=== PATIENT | male | born 1985 | race Caucasian/White ===

== ENCOUNTER 2023-12-12 15:31 | Inpatient (IN) | payer OTHER ==
[2023-12-12] MEDS: SODIUM CHLORIDE 0.9% 500 ML 500 ML IV STA (16:21)
[2023-12-12] MEDS: HYDROmorphone 1 MG/ML 1 ML SYRINGE IVP STA (16:21)
[2023-12-12] MEDS: SODIUM CHLORIDE 0.9% 1,000 ML IV STA ×2 (16:21→16:29)
[2023-12-12] MEDS: PROCHLORPERAZINE INJ 10 MG/2 ML VIAL IVP STA (16:22)
[2023-12-12] MEDS: diphenhydrAMINE 50 MG/ML 1 ML VIAL IVP STA (16:22)
[2023-12-12 16:45] LABS: Basophils # (A) 0.1 k/uL (0-0.2); Basophils % (A) 1 %; Eosinophils # (A) 0.1 k/uL (0-0.7); Eosinophils % (A) 0 %; HGB 18.2 gm/dL (13.0-17.5); Lymphocytes # (A) 1.7 k/uL (1.0-4.8); Lymphocytes % (A) 11 %; MCH 31.3 pg (25.0-35.0); MCV 89.6 fL (80.0-100.0); Mean Platelet Volume 7.6; Monocytes # (A) 0.8 k/uL (0-1.0); Monocytes % (A) 5 %; Neutrophils # (A) 13.7 k/uL (1.3-7.7); Neutrophils % (A) 83 %; Platelet Count 307 k/uL (150-450); RDW 11.6 % (11.5-15.5); WBC 16.4 k/uL (3.8-10.6)
[2023-12-12 17:11] LABS: Partial Thromboplastin Time 23.8 sec (22.0-30.0); Prothrombin Time 11.1 sec (10.0-12.5)
--- NOTE | 2023-12-12 17:13 | ED ---
Abdominal Pain HPI - General Chief Complaint: Abdominal Pain Stated Complaint: Abd pain Time Seen by Provider: 12/12/23 15:40 Source: patient, RN notes reviewed, old records reviewed Mode of arrival: ambulatory Limitations: no limitations - History of Present Illness Initial Comments: This is a 38-year-old male to the ER for evaluation today. Patient patient who presents today e for evaluation regards to abdominal pain right upper quadrant abdominal pain epigastric abdominal pain with severe nausea no vomiting no travel history no significant sick contacts. Patient has history of similar pain with multiple recent ER visits for his pain. Patient's vomiting is profuse and persistent and present here in the ER MD Complaint: abdominal pain -: minutes(s) Location: diffuse, epigastric Radiation: epigastric Migration to: suprapubic Severity: moderate Severity scale (1-10): 6 Quality: stabbing, aching Consistency: constant Improves With: nothing Worsens With: nothing Associated Symptoms: nausea, vomiting Treatments Prior to Arrival: NSAIDs - Related Data Home Medications Medication Instructions Recorded Confirmed Omeprazole 40 mg PO DAILY 12/13/23 12/13/23 Ondansetron Odt [Zofran Odt] 4 mg PO TID PRN 12/13/23 12/13/23 Sucralfate [Carafate] 1 gm PO ACHS 12/13/23 12/13/23 Allergies Allergy/AdvReac Type Severity Reaction Status Date / Time No Known Allergies Allergy Verified 12/13/23 08:58 Review of Systems ROS Statement: Those systems with pertinent positive or pertinent negative responses have been documented in the HPI. ROS Other: All systems not noted in ROS Statement are negative. Past Medical History History of Any Multi-Drug Resistant Organisms: None Reported Past Psychological History: No Psychological Hx Reported Smoking Status: Current every day smoker Past Alcohol Use History: None Reported Past Drug Use History: None Reported General Exam Limitations: no limitations General appearance: alert, in no apparent distress Head exam: Present: atraumatic, normocephalic, normal inspection Eye exam: Present: normal appearance, PERRL, EOMI. Absent: scleral icterus, conjunctival injection, periorbital swelling ENT exam: Present: normal exam, mucous membranes moist Neck exam: Present: normal inspection. Absent: tenderness, meningismus, lymphadenopathy Respiratory exam: Present: normal lung sounds bilaterally. Absent: respiratory distress, wheezes, rales, rhonchi, stridor Cardiovascular Exam: Present: regular rate, normal rhythm, normal heart sounds. Absent: systolic murmur, diastolic murmur, rubs, gallop, clicks GI/Abdominal exam: Present: soft, normal bowel sounds. Absent: distended, tenderness, guarding, rebound, rigid Extremities exam: Present: normal inspection, full ROM, normal capillary refill. Absent: tenderness, pedal edema, joint swelling, calf tenderness Back exam: Present: normal inspection Neurological exam: Present: alert, oriented X3, CN II-XII intact Psychiatric exam: Present: normal affect, normal mood Skin exam: Present: warm, dry, intact, normal color. Absent: rash Course Vital Signs 12/12/23 12/12/23 12/12/23 15:35 20:22 21:29 Temperature 98.0 F Pulse Rate 83 83 62 Respiratory 20 16 18 Rate Blood Pressure 131/95 126/79 106/76 Blood Pressure [Left Arm] O2 Sat by Pulse 99 97 95 Oximetry 12/13/23 12/13/23 12/13/23 00:25 04:27 08:00 Temperature 97.9 F 98.0 F 98.2 F Pulse Rate Respiratory 18 16 18 Rate Blood Pressure Blood Pressure 126/94 117/89 120/84 [Left Arm] O2 Sat by Pulse 96 96 99 Oximetry 12/13/23 12/13/23 08:40 13:30 Temperature 98.3 F Pulse Rate Respiratory 18 18 Rate Blood Pressure Blood Pressure 122/83 [Left Arm] O2 Sat by Pulse 98 Oximetry - Reevaluation(s) Reevaluation #1: 12/12/23 17:28 Medical records reviewed Reevaluation #2: 12/12/23 17:29 Patient symptoms improved Reevaluation #3: 12/12/23 20:40 Spoke with patient informed of results and questions answered Reevaluation #4: Was pt. sent in by a medical professional or institution (, PA, COMMERCIAL CENSUS TAKER, urgent care, hospital, or skilled nursing...) When possible be specific @ -no Did you speak to anyone other than the patient for history (EMS, parent, family, police, friend...)? What history was obtained from this source @ -no Did you review nursing and triage notes (agree or disagree)? Why? @ -agree Are old charts reviewed (outside hosp., previous admission, EMS record, old EKG, old radiological studies, urgent care reports/EKG's, skilled nursing records)? Report findings @ -yes Differential Diagnosis (chest pain, altered mental status, abdominal pain women, abdominal pain men, vaginal bleeding, weakness, fever, dyspnea, syncope, headache, dizziness, GI bleed, back pain, seizure, CVA, palpatations, mental health, musculoskeletal)? @ -prior EKG interpreted by me (3pts min.). @ -yes X-rays interpreted by me (1pt min.). @ -no CT interpreted by me (1pt min.). @ -yes negative for acute disease U/S interpreted by me (1pt. min.). @ -no What testing was considered but not performed or refused? (CT, X-rays, U/S, labs)? Why? @ -none What meds were considered but not given or refused? Why? @ -none Did you discuss the management of the patient with other professionals (professionals i.e. , PA, COMMERCIAL CENSUS TAKER, lab, RT, psych nurse, psychologist social, salesperson yard goods, teacher, public safety officer, shoe caser)? Give summary @ -no Was smoking cessation discussed for >3mins.? @ -no Was critical care preformed (if so, how long)? @ -no Were there social determinants of health that impacted care today? How? (Homelessness, low income, unemployed, alcoholism, drug addiction, transportation, low edu. Level, literacy, decrease access to med. care, snf, rehab)? @ -none Was there de-escalation of care discussed even if they declined (Discuss DNR or withdrawal of care, Hospice)? DNR status @ -no What co-morbidities impacted this encounter? (DM, HTN, Smoking, COPD, CAD, Cancer, CVA, ARF, Chemo, Hep., AIDS, mental health diagnosis, sleep apnea, morbid obesity)? @ -none Was patient admitted / discharged? Hospital course, mention meds given and route, prescriptions, significant lab abnormalities, going to OR and other pertinent info. @ - 38 male to ER for evaluation abdominal pain epigastric abdominal pain with severe nausea vomiting and severe pain. Patient has significant colitis with intractable nausea vomiting will admit for symptom control\ Admitted Undiagnosed new problem with uncertain prognosis? @ -no Drug Therapy requiring intensive monitoring for toxicity (Heparin, Nitro, Insulin, Cardizem)? @ -no Were any procedures done? @ -no Diagnosis/symptom? @ -Abdominal pain intractable colitis Acute, or Chronic, or Acute on Chronic? @ -Acute Uncomplicated (without systemic symptoms) or Complicated (systemic symptoms)? @ -Complicated Side effects of treatment? @ -no Exacerbation, Progression, or Severe Exacerbation? @ -exacerbation Poses a threat to life or bodily function? How? (Chest pain, [place], [place], pneumonia, PE, COPD, DKA, ARF, appy, cholecystitis, CVA, Diverticulitis, Homicidal, Suicidal, threat to staff... and all critical care pts) @ -yes significant abdominal pain Reevaluation #5: Differential Abdominal Pain Men: Appendicitis, cholecystitis, diverticulosis, ischemic bowel, pancreatitis, hepatitis, UTI, gastroenteritis, AAA, incarcerated hernia, bowel obstruction, constipation, inflammatory bowel, hepatitis, peptic ulcer disease, splenic infarction, perforated viscus, testicular torsion, this is not meant to be an all-inclusive list - Consultations Consultation #1: With EM who agrees to admit this patient Medical Decision Making - Medical Decision Making 38 male to ER for evaluation abdominal pain epigastric abdominal pain with severe nausea vomiting and severe pain. Patient has significant colitis with intractable nausea vomiting will admit for symptom control - Lab Data Result diagrams: 12/14/23 06:31 12/14/23 06:31 Lab Results 12/12/23 12/12/23 12/12/23 Range/Units 16:32 16:32 16:32 WBC 16.4 H (3.8-10.6) k/uL RBC 5.80 (4.30-5.90) m/uL Hgb 18.2 H (13.0-17.5) gm/dL Hct 52.0 (39.0-53.0) % MCV 89.6 (80.0-100.0) fL MCH 31.3 (25.0-35.0) pg MCHC 35.0 (31.0-37.0) g/dL RDW 11.6 (11.5-15.5) % Plt Count 307 (150-450) k/uL MPV 7.6 Neutrophils % 83 % Lymphocytes % 11 % Monocytes % 5 % Eosinophils % 0 % Basophils % 1 % Neutrophils # 13.7 H (1.3-7.7) k/uL Lymphocytes # 1.7 (1.0-4.8) k/uL Monocytes # 0.8 (0-1.0) k/uL Eosinophils # 0.1 (0-0.7) k/uL Basophils # 0.1 (0-0.2) k/uL PT 11.1 (10.0-12.5) sec INR 1.0 (<1.2) APTT 23.8 (22.0-30.0) sec Sodium 138 (137-145) mmol/L Potassium 4.2 (3.5-5.1) mmol/L Chloride 103 (98-107) mmol/L Carbon Dioxide 21 L (22-30) mmol/L Anion Gap 14 mmol/L BUN 11 (9-20) mg/dL Creatinine 0.59 L (0.66-1.25) mg/dL Est GFR (CKD-EPI)AfAm >90 (>60 ml/min/1.73 sqM) Est GFR (CKD-EPI)NonAf >90 (>60 ml/min/1.73 sqM) Glucose 168 H (74-99) mg/dL Lactic Ac Sepsis Rflx Plasma Lactic Acid Jasiel (0.7-2.0) mmol/L Calcium 10.6 H (8.4-10.2) mg/dL Phosphorus 3.0 (2.5-4.5) mg/dL Magnesium 1.9 (1.6-2.3) mg/dL Total Bilirubin 1.1 (0.2-1.3) mg/dL AST 23 (17-59) U/L ALT 45 (4-49) U/L Alkaline Phosphatase 55 (38-126) U/L Troponin I (0.000-0.034) ng/mL Total Protein 8.2 (6.3-8.2) g/dL Albumin 5.1 H (3.5-5.0) g/dL Lipase 148 (23-300) U/L Urine Color Urine Appearance (Clear) Urine pH (5.0-8.0) Ur Specific Valentine (1.001-1.035) Urine Protein (Negative) Urine Glucose (UA) (Negative) Urine Ketones (Negative) Urine Blood (Negative) Urine Nitrite (Negative) Urine Bilirubin (Negative) Urine Urobilinogen (<2.0) mg/dL Ur Leukocyte Esterase (Negative) Urine Opiates Screen (NotDetected) Ur Oxycodone Screen (NotDetected) Urine Methadone Screen (NotDetected) Ur Barbiturates Screen (NotDetected) U Tricyclic Antidepress (NotDetected) Ur Phencyclidine Scrn (NotDetected) Ur Amphetamines Screen (NotDetected) U Methamphetamines Scrn (NotDetected) U Benzodiazepines Scrn (NotDetected) Urine Cocaine Screen (NotDetected) U Marijuana (THC) Screen (NotDetected) Serum Alcohol <10 mg/dL 12/12/23 12/12/23 12/12/23 Range/Units 16:32 16:32 17:18 WBC (3.8-10.6) k/uL RBC (4.30-5.90) m/uL Hgb (13.0-17.5) gm/dL Hct (39.0-53.0) % MCV (80.0-100.0) fL MCH (25.0-35.0) pg MCHC (31.0-37.0) g/dL RDW (11.5-15.5) % Plt Count (150-450) k/uL MPV Neutrophils % % Lymphocytes % % Monocytes % % Eosinophils % % Basophils % % Neutrophils # (1.3-7.7) k/uL Lymphocytes # (1.0-4.8) k/uL Monocytes # (0-1.0) k/uL Eosinophils # (0-0.7) k/uL Basophils # (0-0.2) k/uL PT (10.0-12.5) sec INR (<1.2) APTT (22.0-30.0) sec Sodium (137-145) mmol/L Potassium (3.5-5.1) mmol/L Chloride (98-107) mmol/L Carbon Dioxide (22-30) mmol/L Anion Gap mmol/L BUN (9-20) mg/dL Creatinine (0.66-1.25) mg/dL Est GFR (CKD-EPI)AfAm (>60 ml/min/1.73 sqM) Est GFR (CKD-EPI)NonAf (>60 ml/min/1.73 sqM) Glucose (74-99) mg/dL Lactic Ac Sepsis Rflx Y Plasma Lactic Acid Jasiel 2.2 H* (0.7-2.0) mmol/L Calcium (8.4-10.2) mg/dL Phosphorus (2.5-4.5) mg/dL Magnesium (1.6-2.3) mg/dL Total Bilirubin (0.2-1.3) mg/dL AST (17-59) U/L ALT (4-49) U/L Alkaline Phosphatase (38-126) U/L Troponin I <0.012 (0.000-0.034) ng/mL Total Protein (6.3-8.2) g/dL Albumin (3.5-5.0) g/dL Lipase (23-300) U/L Urine Color Urine Appearance (Clear) Urine pH (5.0-8.0) Ur Specific Valentine (1.001-1.035) Urine Protein (Negative) Urine Glucose (UA) (Negative) Urine Ketones (Negative) Urine Blood (Negative) Urine Nitrite (Negative) Urine Bilirubin (Negative) Urine Urobilinogen (<2.0) mg/dL Ur Leukocyte Esterase (Negative) Urine Opiates Screen (NotDetected) Ur Oxycodone Screen (NotDetected) Urine Methadone Screen (NotDetected) Ur Barbiturates Screen (NotDetected) U Tricyclic Antidepress (NotDetected) Ur Phencyclidine Scrn (NotDetected) Ur Amphetamines Screen (NotDetected) U Methamphetamines Scrn (NotDetected) U Benzodiazepines Scrn (NotDetected) Urine Cocaine Screen (NotDetected) U Marijuana (THC) Screen (NotDetected) Serum Alcohol mg/dL 12/12/23 12/12/23 Range/Units 19:10 19:58 WBC (3.8-10.6) k/uL RBC (4.30-5.90) m/uL Hgb (13.0-17.5) gm/dL Hct (39.0-53.0) % MCV (80.0-100.0) fL MCH (25.0-35.0) pg MCHC (31.0-37.0) g/dL RDW (11.5-15.5) % Plt Count (150-450) k/uL MPV Neutrophils % % Lymphocytes % % Monocytes % % Eosinophils % % Basophils % % Neutrophils # (1.3-7.7) k/uL Lymphocytes # (1.0-4.8) k/uL Monocytes # (0-1.0) k/uL Eosinophils # (0-0.7) k/uL Basophils # (0-0.2) k/uL PT (10.0-12.5) sec INR (<1.2) APTT (22.0-30.0) sec Sodium (137-145) mmol/L Potassium (3.5-5.1) mmol/L Chloride (98-107) mmol/L Carbon Dioxide (22-30) mmol/L Anion Gap mmol/L BUN (9-20) mg/dL Creatinine (0.66-1.25) mg/dL Est GFR (CKD-EPI)AfAm (>60 ml/min/1.73 sqM) Est GFR (CKD-EPI)NonAf (>60 ml/min/1.73 sqM) Glucose (74-99) mg/dL Lactic Ac Sepsis Rflx Plasma Lactic Acid Jasiel 1.5 (0.7-2.0) mmol/L Calcium (8.4-10.2) mg/dL Phosphorus (2.5-4.5) mg/dL Magnesium (1.6-2.3) mg/dL Total Bilirubin (0.2-1.3) mg/dL AST (17-59) U/L ALT (4-49) U/L Alkaline Phosphatase (38-126) U/L Troponin I (0.000-0.034) ng/mL Total Protein (6.3-8.2) g/dL Albumin (3.5-5.0) g/dL Lipase (23-300) U/L Urine Color Yellow Urine Appearance Clear (Clear) Urine pH 7.0 (5.0-8.0) Ur Specific Valentine 1.028 (1.001-1.035) Urine Protein Trace H (Negative) Urine Glucose (UA) 3+ H (Negative) Urine Ketones 2+ H (Negative) Urine Blood Negative (Negative) Urine Nitrite Negative (Negative) Urine Bilirubin Negative (Negative) Urine Urobilinogen <2.0 (<2.0) mg/dL Ur Leukocyte Esterase Negative (Negative) Urine Opiates Screen Detected H (NotDetected) Ur Oxycodone Screen Not Detected (NotDetected) Urine Methadone Screen Not Detected (NotDetected) Ur Barbiturates Screen Not Detected (NotDetected) U Tricyclic Antidepress Not Detected (NotDetected) Ur Phencyclidine Scrn Not Detected (NotDetected) Ur Amphetamines Screen Not Detected (NotDetected) U Methamphetamines Scrn Not Detected (NotDetected) U Benzodiazepines Scrn Not Detected (NotDetected) Urine Cocaine Screen Not Detected (NotDetected) U Marijuana (THC) Screen Detected H (NotDetected) Serum Alcohol mg/dL - EKG Data -: EKG Interpreted by Me (EKG sinus bradycardia 53 NH 133 QRS 110 QTc 454) - Radiology Data Radiology results: report reviewed (CT of the abdomen and pelvis positive for colitis), image reviewed Disposition Clinical Impression: Abdominal pain, Abdominal colic, Nausea & vomiting, Gastroenteritis, Colitis Disposition: ADMITTED IP TO THIS [facility] Condition: Good Is patient prescribed a controlled substance at d/c from ED?: No Time of Disposition: 20:40
[2023-12-12 17:15] LABS: ALT 45 U/L (4-49); AST 23 U/L (17-59); African American GFR (CKD) >90 (>60 ml/min/1.73 sqM); Albumin 5.1 g/dL (3.5-5.0); Alcohol <10 mg/dL; Alkaline Phosphatase 55 U/L (38-126); Anion Gap 14 mmol/L; Blood Urea Nitrogen 11 mg/dL (9-20); Calcium 10.6 mg/dL (8.4-10.2); Carbon Dioxide 21 mmol/L (22-30); Chloride 103 mmol/L (98-107); Glucose 168 mg/dL (74-99); Lipase 148 U/L (23-300); Magnesium 1.9 mg/dL (1.6-2.3); Non-African American GFR(CKD) >90 (>60 ml/min/1.73 sqM); Potassium 4.2 mmol/L (3.5-5.1); Sodium 138 mmol/L (137-145); Total Bilirubin 1.1 mg/dL (0.2-1.3); Total Protein 8.2 g/dL (6.3-8.2)
--- NOTE | 2023-12-12 19:23 | CT ---
EXAMINATION TYPE: CT abdomen pelvis w con CT DLP: 1136 mGycm, Automated exposure control for dose reduction was used. DATE OF EXAM: 12/12/2023 7:01 PM COMPARISON: None. CLINICAL INDICATION:Male, 38 years old with history of pain; abdominal pain, nausea, vomiting TECHNIQUE: Axial CT abdomen pelvis w con;Sagittal and coronal reformats were created on a separate w orkstation. Contrast used:100 ml mL of Isovue 300 with IV Contrast, (none if empty) Oral contrast used: without Oral Contrast (none if empty) FINDINGS: LOWER CHEST: Unremarkable ABDOMEN LIVER: Diffusely hypoattenuating parenchyma. GALLBLADDER AND BILE DUCTS: Unremarkable. PANCREAS: Unremarkable. SPLEEN: Unremarkable. ADRENAL GLANDS: Unremarkable. KIDNEYS AND URETERS: No evidence of hydronephrosis or renal calculus. The ureters are unremarkable. PELVIS BLADDER: Unremarkable REPRODUCTIVE: Unremarkable. ABDOMEN & PELVIS STOMACH AND BOWEL: No evidence of bowel obstruction. Submucosal fat deposition throughout the colon. High density material seen within the appendix possibly representing oral contrast from prior injecti on. There is circumferential wall thickening extending from the mid: 2 the descending colon. Findings could be due to underdistention. PERITONEUM/RETROPERITONEUM: No evidence of pneumoperitoneum or free fluid. VASCULATURE: No evidence of aortic aneurysm. MUSCULOSKELETAL: No acute osseous abnormalities LYMPH NODES: No gross evidence for lymphadenopathy. SOFT TISSUE/ABDOMINAL WALL: Unremarkable IMPRESSION: 1. Mild circumferential wall thickening of the mid transverse colon extending to the descending colo n which may be due to underdistention. Correlate for colitis. No evidence for additional acute proces s in the abdomen or pelvis. 2. Hepatic steatosis.
[2023-12-12 19:29] LABS: Appearance,Urine Clear (Clear); Bilirubin,Urine Negative (Negative); Blood,Urine Negative (Negative); Color,Urine Yellow; Glucose,Urine (UA) 3+ (Negative); Leukocyte Esterase,Urine Negative (Negative); Nitrite,Urine Negative (Negative); Protein,Urine Trace (Negative); Specific Gravity,Urine 1.028 (1.001-1.035); Urobilinogen,Urine <2.0 mg/dL (<2.0)
[2023-12-12 19:40] LABS: Amphetamine Screen,Urine Not Detected (NotDetected); Benzodiazepines Screen,Urine Not Detected (NotDetected); Cocaine Screen,Urine Not Detected (NotDetected); Opiate Screen,Urine Detected (NotDetected); Phencyclidine Screen,Urine Not Detected (NotDetected); Urn Cannabinoid Scrn Detected (NotDetected)
[2023-12-12 19:41] LABS: Barbiturate Screen,Urine Not Detected (NotDetected); Methadone Screen, Urine Not Detected (NotDetected); Oxycodone Screen, Urine Not Detected (NotDetected); Tricyclic Antidepressant,Urine Not Detected (NotDetected)
[2023-12-12 19:43] LABS: Ketones,Urine 2+ (Negative)
[2023-12-12] MEDS ORDERED: NALOXONE 0.4 MG/ML 1 ML VIAL IV PRN (20:36)
[2023-12-12] MEDS: PANTOPRAZOLE 40 MG/10 ML VIAL IV SCH (21:22)
[2023-12-12] MEDS: SODIUM CHLORIDE 0.9% 1,000 ML IV SCH (21:22)
[2023-12-13] MEDS: HYDROmorphone 1 MG/ML 1 ML SYRINGE IVP PRN ×2 (00:25→13:35)
[2023-12-13] MEDS: ONDANSETRON 4 MG/2 ML VIAL IVP PRN (00:25)
[2023-12-13 07:50] LABS: Basophils # (A) 0.1 k/uL (0-0.2); Basophils % (A) 1 %; Eosinophils # (A) 0.2 k/uL (0-0.7); Eosinophils % (A) 2 %; HCT 47.9 % (39.0-53.0); Lymphocytes # (A) 3.9 k/uL (1.0-4.8); Lymphocytes % (A) 29 %; MCH 30.9 pg (25.0-35.0); MCHC 33.5 g/dL (31.0-37.0); MCV 92.1 fL (80.0-100.0); Mean Platelet Volume 7.5; Monocytes # (A) 0.8 k/uL (0-1.0); Monocytes % (A) 6 %; Neutrophils # (A) 8.2 k/uL (1.3-7.7); Neutrophils % (A) 61 %; Platelet Count 281 k/uL (150-450); RDW 11.8 % (11.5-15.5); WBC 13.4 k/uL (3.8-10.6)
[2023-12-13 08:19] LABS: ALT 39 U/L (4-49); AST 24 U/L (17-59); African American GFR (CKD) >90 (>60 ml/min/1.73 sqM); Albumin/Globulin Ratio 1.5; Alkaline Phosphatase 37 U/L (38-126); Anion Gap 9 mmol/L; Blood Urea Nitrogen 10 mg/dL (9-20); Calcium 9.3 mg/dL (8.4-10.2); Carbon Dioxide 20 mmol/L (22-30); Chloride 108 mmol/L (98-107); Globulin 2.6 g/dL; Glucose 131 mg/dL (74-99); Lipase 46 U/L (23-300); Non-African American GFR(CKD) >90 (>60 ml/min/1.73 sqM); Phosphorus 4.2 mg/dL (2.5-4.5); Potassium 4.2 mmol/L (3.5-5.1); Sodium 137 mmol/L (137-145); Total Bilirubin 0.7 mg/dL (0.2-1.3); Total Protein 6.6 g/dL (6.3-8.2)
[2023-12-13] MEDS: PROCHLORPERAZINE INJ 10 MG/2 ML VIAL IVP PRN (12:46)
[2023-12-13] MEDS: SUCRALFATE 1 GM TAB PO SCH (14:33)
--- NOTE | 2023-12-13 16:14 | P.GSCN ---
History of Present Illness Consult date: 12/13/23 History of present illness: General surgery is consulted for colitis. Patient reports past history of fecal impaction over 10 years ago or chronic colonoscopy at that time. He reports having over 40+ ulcers in his intestine. No recent upper endoscopy. Patient reports 2 weeks of intractable nausea and vomiting. He reports minimal oral intake. He confirms severe dehydration as he has oliguria with barely voiding once or twice a day. He reports extremely dark urine. Reports unable to keep an acid medication down. Reports severe reflux disease. Patient denies any family history of ulcerative colitis or Crohn's disease. He does have a family history of rheumatoid arthritis and psoriasis. He reports history of blood in stools in the past several weeks. Due to his symptoms, general surgery is consulted. Denies exposure to sick contacts. Denies any unfamiliar foods. ABDOMEN: Generalized tenderness. No peritonitis. STUDIES: CT of the abdomen pelvis independently reviewed demonstrate marked thickening of the ascending colon including transverse colon. This is my independent interpretation. No inflammatory changes along the ileum to suggest Crohn's disease. ASSESSMENT: 1. Intractable nausea and vomiting with severe dehydration 2. Colitis of unclear etiology with GI bleed PLAN: 1. He reports at least 2 weeks of minimal oral intake and as a result severe dehydration. Expected fluid loss over 6 to 8 L. Aggressive IV fluid hydration of 6 L in the next 12 hours described. 2. Due to severe dehydration, will hold colonoscopy. Will proceed with upper endoscopy with intractable nausea and vomiting, reflux disease, GI bleed 3. May have clear liquid diet. 4. Empiric antibiotic with Flagyl for colitis. 5. Schedule antiemetics with Zofran including scopolamine patch 6. Recommend stool cultures, lactoferrin levels, C. difficile assessment for colitis Past Medical History Past Medical History: No Reported History History of Any Multi-Drug Resistant Organisms: None Reported Past Surgical History: No Surgical Hx Reported Past Anesthesia/Blood Transfusion Reactions: No Reported Reaction Past Psychological History: No Psychological Hx Reported Smoking Status: Current some day smoker Past Alcohol Use History: None Reported Past Drug Use History: None Reported Medications and Allergies Home Medications Medication Instructions Recorded Confirmed Type Omeprazole 40 mg PO DAILY 12/13/23 12/13/23 History Ondansetron Odt [Zofran Odt] 4 mg PO TID PRN 12/13/23 12/13/23 History Sucralfate [Carafate] 1 gm PO ACHS 12/13/23 12/13/23 History Allergies Allergy/AdvReac Type Severity Reaction Status Date / Time No Known Allergies Allergy Verified 12/13/23 08:58 Surgical - Exam Vital Signs Temp Pulse Resp BP Pulse Ox 98.0 F 83 20 131/95 99 12/12/23 15:35 12/12/23 15:35 12/12/23 15:35 12/12/23 15:35 12/12/23 15:35 Results - Labs 12/13/23 07:31 12/13/23 07:31 Abnormal Lab Results - Last 24 Hours (Table) 12/12/23 12/12/23 12/12/23 Range/Units 16:32 16:32 16:32 WBC 16.4 H (3.8-10.6) k/uL Hgb 18.2 H (13.0-17.5) gm/dL Neutrophils # 13.7 H (1.3-7.7) k/uL Chloride (98-107) mmol/L Carbon Dioxide 21 L (22-30) mmol/L Creatinine 0.59 L (0.66-1.25) mg/dL Glucose 168 H (74-99) mg/dL Plasma Lactic Acid Jasiel 2.2 H* (0.7-2.0) mmol/L Calcium 10.6 H (8.4-10.2) mg/dL Alkaline Phosphatase (38-126) U/L Albumin 5.1 H (3.5-5.0) g/dL Urine Protein (Negative) Urine Glucose (UA) (Negative) Urine Ketones (Negative) Urine Opiates Screen (NotDetected) U Marijuana (THC) Screen (NotDetected) 12/12/23 12/13/23 12/13/23 Range/Units 19:10 07:31 07:31 WBC 13.4 H (3.8-10.6) k/uL Hgb (13.0-17.5) gm/dL Neutrophils # 8.2 H (1.3-7.7) k/uL Chloride 108 H (98-107) mmol/L Carbon Dioxide 20 L (22-30) mmol/L Creatinine 0.54 L (0.66-1.25) mg/dL Glucose 131 H (74-99) mg/dL Plasma Lactic Acid Jasiel (0.7-2.0) mmol/L Calcium (8.4-10.2) mg/dL Alkaline Phosphatase 37 L (38-126) U/L Albumin (3.5-5.0) g/dL Urine Protein Trace H (Negative) Urine Glucose (UA) 3+ H (Negative) Urine Ketones 2+ H (Negative) Urine Opiates Screen Detected H (NotDetected) U Marijuana (THC) Screen Detected H (NotDetected) Diabetes panel 12/12/23 12/13/23 Range/Units 16:32 07:31 Sodium 138 137 (137-145) mmol/L Potassium 4.2 4.2 (3.5-5.1) mmol/L Chloride 103 108 H (98-107) mmol/L Carbon Dioxide 21 L 20 L (22-30) mmol/L BUN 11 10 (9-20) mg/dL Creatinine 0.59 L 0.54 L (0.66-1.25) mg/dL Glucose 168 H 131 H (74-99) mg/dL Calcium 10.6 H 9.3 (8.4-10.2) mg/dL AST 23 24 (17-59) U/L ALT 45 39 (4-49) U/L Alkaline Phosphatase 55 37 L (38-126) U/L Total Protein 8.2 6.6 (6.3-8.2) g/dL Albumin 5.1 H 4.0 (3.5-5.0) g/dL Calcium panel 12/12/23 12/13/23 Range/Units 16:32 07:31 Calcium 10.6 H 9.3 (8.4-10.2) mg/dL Phosphorus 3.0 4.2 (2.5-4.5) mg/dL Albumin 5.1 H 4.0 (3.5-5.0) g/dL Pituitary panel 12/12/23 12/13/23 Range/Units 16:32 07:31 Sodium 138 137 (137-145) mmol/L Potassium 4.2 4.2 (3.5-5.1) mmol/L Chloride 103 108 H (98-107) mmol/L Carbon Dioxide 21 L 20 L (22-30) mmol/L BUN 11 10 (9-20) mg/dL Creatinine 0.59 L 0.54 L (0.66-1.25) mg/dL Glucose 168 H 131 H (74-99) mg/dL Calcium 10.6 H 9.3 (8.4-10.2) mg/dL Adrenal panel 12/12/23 12/13/23 Range/Units 16:32 07:31 Sodium 138 137 (137-145) mmol/L Potassium 4.2 4.2 (3.5-5.1) mmol/L Chloride 103 108 H (98-107) mmol/L Carbon Dioxide 21 L 20 L (22-30) mmol/L BUN 11 10 (9-20) mg/dL Creatinine 0.59 L 0.54 L (0.66-1.25) mg/dL Glucose 168 H 131 H (74-99) mg/dL Calcium 10.6 H 9.3 (8.4-10.2) mg/dL Total Bilirubin 1.1 0.7 (0.2-1.3) mg/dL AST 23 24 (17-59) U/L ALT 45 39 (4-49) U/L Alkaline Phosphatase 55 37 L (38-126) U/L Total Protein 8.2 6.6 (6.3-8.2) g/dL Albumin 5.1 H 4.0 (3.5-5.0) g/dL
[2023-12-13] MEDS: SODIUM CHLORIDE 0.9% 2,000 ML IV ONE ×2 (16:29→21:41)
[2023-12-13] MEDS: SCOPOLAMINE 1 MG/72 HR PATCH TRANSDERM STA (16:45)
[2023-12-13] MEDS: ONDANSETRON 4 MG/2 ML VIAL IVP SCH (16:52)
[2023-12-13] MEDS: metroNIDAZOLE-NS PMX 500 MG in SALINE 1 100ML.BAG IVPB SCH (17:37)
--- NOTE | 2023-12-13 17:54 | P.HPIM ---
History of Present Illness H&P Date: 12/14/23 Chief Complaint: Abdominal pain 38-year-old male to the ER for evaluation today. Patient patient who presents today e for evaluation regards to abdominal pain right upper quadrant abdominal pain epigastric abdominal pain with severe nausea no vomiting no travel history no significant sick contacts. Patient has history of similar pain with multiple recent ER visits for his pain. Patient's vomiting is profuse and persistent and present here in the ER CT of the abdomen pelvis independently reviewed demonstrate marked thickening of the ascending colon including transverse colon. Blood work completed in ED reveals a WBC of 13.4, hemoglobin of 16 and platelet count of 281, sodium 137, potassium 4.2, BUNs/creatinine of 10/0.54 and blood glucose of 131, lactic acid of 2.2 Review of Systems REVIEW OF SYSTEMS: CONSTITUTIONAL: No fever, no malaise, no fatigue. HEENT: No recent visual problems or hearing problems. Denied any sore throat. CARDIOVASCULAR: No chest pain, orthopnea, PND, no palpitations, no syncope. PULMONARY: No shortness of breath, no cough, no hemoptysis. GASTROINTESTINAL: No diarrhea, no nausea, no vomiting, no abdominal pain. NEUROLOGICAL: No headaches, no weakness, no numbness. HEMATOLOGICAL: Denies any bleeding or petechiae. GENITOURINARY: Denies any burning micturition, frequency, or urgency. MUSCULOSKELETAL/RHEUMATOLOGICAL: Denies any joint pain, swelling, or any muscle pain. ENDOCRINE: Denies any polyuria or polydipsia. The rest of the 14-point review of systems is negative. Past Medical History Past Medical History: No Reported History History of Any Multi-Drug Resistant Organisms: None Reported Past Surgical History: No Surgical Hx Reported Past Anesthesia/Blood Transfusion Reactions: No Reported Reaction Past Psychological History: No Psychological Hx Reported Smoking Status: Current some day smoker Past Alcohol Use History: None Reported Past Drug Use History: None Reported Medications and Allergies Home Medications Medication Instructions Recorded Confirmed Type Omeprazole 40 mg PO DAILY 12/13/23 12/13/23 History Ondansetron Odt [Zofran Odt] 4 mg PO TID PRN 12/13/23 12/13/23 History Sucralfate [Carafate] 1 gm PO ACHS 12/13/23 12/13/23 History Allergies Allergy/AdvReac Type Severity Reaction Status Date / Time No Known Allergies Allergy Verified 12/13/23 08:58 Physical Exam Vitals: Vital Signs Temp Pulse Resp BP BP Pulse Ox 12/13/23 08:40 18 12/13/23 08:00 98.2 F 18 120/84 99 12/13/23 04:27 98.0 F 16 117/89 96 12/13/23 00:25 97.9 F 18 126/94 96 12/12/23 21:29 62 18 106/76 95 12/12/23 20:22 83 16 126/79 97 12/12/23 15:35 98.0 F 83 20 131/95 99 Intake and Output 12/12/23 12/13/23 12/13/23 22:59 06:59 14:59 Intake Total 1560 Balance 1560 Intake: Intake, IV Titration 1560 Amount Sodium Chloride 0.9% 1, 1560 000 ml @ 130 mls/hr IV . Q7H42M [facility] Rx#:[id number] Other: Voiding Method Toilet Toilet Weight 90.265 kg 90.265 kg General appearance: alert, in no apparent distress Head exam: Present: atraumatic, normocephalic, normal inspection Eye exam: Present: normal appearance, PERRL, EOMI. Absent: scleral icterus, conjunctival injection, periorbital swelling ENT exam: Present: normal exam, mucous membranes moist Neck exam: Present: normal inspection. Absent: tenderness, meningismus, lymphadenopathy Respiratory exam: Present: normal lung sounds bilaterally. Absent: respiratory distress, wheezes, rales, rhonchi, stridor Cardiovascular Exam: Present: regular rate, normal rhythm, normal heart sounds. Absent: systolic murmur, diastolic murmur, rubs, gallop, clicks GI/Abdominal exam: Present: soft, normal bowel sounds. Absent: distended, tenderness, guarding, rebound, rigid Extremities exam: Present: normal inspection, full ROM, normal capillary refill. Absent: tenderness, pedal edema, joint swelling, calf tenderness Back exam: Present: normal inspection Neurological exam: Present: alert, oriented X3, CN II-XII intact Psychiatric exam: Present: normal affect, normal mood Skin exam: Present: warm, dry, intact, normal color. Absent: rash Results CBC & Chem 7: 12/13/23 07:31 12/13/23 07:31 Labs: Abnormal Lab Results - Last 24 Hours (Table) 12/12/23 12/12/23 12/12/23 Range/Units 16:32 16:32 16:32 WBC 16.4 H (3.8-10.6) k/uL Hgb 18.2 H (13.0-17.5) gm/dL Neutrophils # 13.7 H (1.3-7.7) k/uL Chloride (98-107) mmol/L Carbon Dioxide 21 L (22-30) mmol/L Creatinine 0.59 L (0.66-1.25) mg/dL Glucose 168 H (74-99) mg/dL Plasma Lactic Acid Jasiel 2.2 H* (0.7-2.0) mmol/L Calcium 10.6 H (8.4-10.2) mg/dL Alkaline Phosphatase (38-126) U/L Albumin 5.1 H (3.5-5.0) g/dL Urine Protein (Negative) Urine Glucose (UA) (Negative) Urine Ketones (Negative) Urine Opiates Screen (NotDetected) U Marijuana (THC) Screen (NotDetected) 12/12/23 12/13/23 12/13/23 Range/Units 19:10 07:31 07:31 WBC 13.4 H (3.8-10.6) k/uL Hgb (13.0-17.5) gm/dL Neutrophils # 8.2 H (1.3-7.7) k/uL Chloride 108 H (98-107) mmol/L Carbon Dioxide 20 L (22-30) mmol/L Creatinine 0.54 L (0.66-1.25) mg/dL Glucose 131 H (74-99) mg/dL Plasma Lactic Acid Jasiel (0.7-2.0) mmol/L Calcium (8.4-10.2) mg/dL Alkaline Phosphatase 37 L (38-126) U/L Albumin (3.5-5.0) g/dL Urine Protein Trace H (Negative) Urine Glucose (UA) 3+ H (Negative) Urine Ketones 2+ H (Negative) Urine Opiates Screen Detected H (NotDetected) U Marijuana (THC) Screen Detected H (NotDetected) Thrombosis Risk Factor Assmnt - Choose All That Apply Any of the Below Risk Factors Present?: No Assessment and Plan Assessment: 1. Abdominal pain/colitis - CT of the abdomen pelvis demonstrate marked thickening of the ascending colon including transverse colon, colitis. -We will plan to start patient on IV Rocephin/Flagyl; monitor CBC, CRP and procalcitonin -- General surgery is consulted 2. Intractable nausea/vomiting/dehydration; patient remains on IV fluid hydration -Symptomatic treatment for nausea -- Patient has been evaluated by surgery and recommending aggressive IV fluid hy dration clear liquid diet; ; plans for colonoscopy once clinically stable 3. Leukocytosis; likely related to infectious colitis; monitor CBC, CRP and procalcitonin 4. Substance abuse; urine drug screen is positive for opiates and marijuana; counseling done VTE prophylaxis; SCDs CODE STATUS; full code
[2023-12-13] MEDS: NICOTINE 14MG/24HR PATCH TRANSDERM SCH (19:47)
[2023-12-13] MEDS: MELATONIN 3 MG TABLET PO SCH (20:44)
[2023-12-14] MEDS: SODIUM CHLORIDE 0.9% 2,000 ML IV ONE (01:41)
[2023-12-14] MEDS ORDERED: MIDAZOLAM 2 MG/2 ML VIAL ONE (09:55)
[2023-12-14] MEDS ORDERED: PROPOFOL 10 MG/ML 20 ML VIAL IV ONE (09:55)
[2023-12-14] MEDS ORDERED: LIDOCAINE 1% INJ 10MG/ML (20 ML MDV) ONE (09:55)
[2023-12-14] MEDS: IV FLUID CONTINUATION 1,000 ML IV ONE ×2 (10:01→10:16)
--- NOTE | 2023-12-14 10:16 | P.PCN ---
Date of Procedure: 12/14/23 Description of Procedure: PREOPERATIVE DIAGNOSIS: Gastritis Intractable nausea and vomiting Gastric ulcers Intractable epigastric pain POSTOPERATIVE DIAGNOSIS: Gastroesophageal reflux disease with erosive esophagitis Acute on chronic gastritis OPERATION: Esophagogastroduodenoscopy with biopsies along antrum and duodenum SURGEON: Amanda Ramos MD ANESTHESIA: MAC. INDICATIONS: The patient is a 38-year-old male who presents with intractable nausea and vomiting, ulcers, gastritis including tractable epigastric pain. Benefits and risks of the procedure were described. Informed consent was obtained. DESCRIPTION: The patient was brought into the endoscopy suite and laid in the left lateral decubitus position. An Olympus gastroscope was passed along the posterior oropharynx down to the distal esophagus where the squamocolumnar junction was encountered at 40 cm from the incisors. The stomach was entered and moderate bile reflux was found. Additional findings are listed below. Biopsies with cold forceps were obtained of the antrum. The first through third portion of the duodenum was examined. Retroflexion of the scope confirmed Hill grade 2 lower esophageal valve. The squamocolumnar junction demonstrated LA grade B erosive esophagitis. The stomach was desufflated. The patient tolerated the procedure well. FINDINGS: Squamocolumnar junction 40 cm from the incisors. Diaphragmatic hiatus at 40 cm. Hill grade 4 lower esophageal valve. LA grade B erosive esophagitis. Biopsies obtained of the duodenum. Acute on chronic gastritis with biopsies obtained. Moderate bile reflux RECOMMENDATIONS: Additional recommendations pending pathology report Recommend gallbladder studies including ultrasound and HIDA scan for epigastric abdominal pain
[2023-12-14] MEDS ORDERED: LORazepam 2 MG/ML INJ IV PRN (11:07)
[2023-12-14] MEDS: ACETAMINOPHEN IV (For NPO) 1,000 MG in EMPTY BAG 1 BAG IVPB SCH (11:12)
[2023-12-14 11:16] LABS: Basophils # (A) 0.06 X 10*3/uL (0.00-0.10); Basophils % (A) 0.6 %; Eosinophils # (A) 0.32 X 10*3/uL (0.04-0.35); Eosinophils % (A) 3.4 %; HCT 41.2 % (39.6-50.0); HGB 14.2 g/dL (13.0-17.0); Lymphocytes # (A) 3.03 X 10*3/uL (0.90-5.00); MCH 31.4 pg (27.0-32.0); MCHC 34.5 g/dL (32.0-37.0); MCV 91.2 FL (80.0-97.0); Mean Platelet Volume 10.2 FL (9.5-12.2); Monocytes # (A) 0.71 X 10*3/uL (0.20-1.00); Monocytes % (A) 7.5 %; NRBC Per 100 WBC 0 X 10*3/uL (0.00-0.01); Neutrophils # (A) 5.32 X 10*3/uL (1.80-7.70); Neutrophils % (A) 56.1 %; Platelet Count 233 X 10*3/uL (140-440); RBC 4.52 X 10*6/uL (4.40-5.60); RDW 11.7 % (11.5-14.5); WBC 9.48 X 10*3/uL (4.50-10.00)
[2023-12-14] MEDS: PANTOPRAZOLE 40 MG/10 ML VIAL IVP SCH (11:18)
--- NOTE | 2023-12-14 11:31 | US ---
EXAMINATION TYPE: US gallbladder DATE OF EXAM: 12/14/2023 COMPARISON: NONE CLINICAL INDICATION: Male, 38 years old with history of Right upper quadrant pain; RUQ pain n/v TECHNIQUE: Multiple sonographic images of the right upper quadrant are obtained. FINDINGS: EXAM MEASUREMENTS: Liver Length: 18.1 cm Gallbladder Wall: 0.7 cm CBD: 0.4 cm Right Kidney: 11.6x5.4x6.9 cm EVENT ORGANIZER NOTES: Pancreas: Tail obscured by overlying bowel gas Liver: increased size and echogenicity Gallbladder: pericystic fluid, anterior wall thickening. Evidence for sonographic Bazan's sign: Yes CBD: wnl Right Kidney: No hydronephrosis or masses seen exam limited by bowel and patient pain IMPRESSION: 1. Gallbladder wall thickening and pericholecystic fluid in the presence of positive sonographic Mur phy's sign. Findings suggest acute cholecystitis. Surgical consultation recommended. 2. Hepatic steatosis.
[2023-12-14 11:34] LABS: BUN/Creat Ratio 15.17 Ratio (12.00-20.00); Blood Urea Nitrogen 9.1 mg/dL (9.0-27.0); Calcium 8.6 mg/dL (8.7-10.3); Carbon Dioxide 22.4 mmol/L (21.6-31.8); Chloride 104 mmol/L (96-109); Glucose 107 mg/dL (70-110); Potassium 3.9 mmol/L (3.5-5.5); Sodium 136 mmol/L (135-145)
--- NOTE | 2023-12-14 11:42 | PN ---
PROGRESS NOTE DATE OF SERVICE: 12/14/2023 HISTORY OF PRESENT ILLNESS: This is a 38-year-old gentleman, who was admitted with nausea, vomiting, and severe abdominal pain. CT scan showed mid circumferential wall thickening of the mid transverse colon as this extended to the descending colon, possibly colitis. The patient also had hepatic steatosis. The patient also had an endoscopy done by Dr. Ramos showed reflux esophagitis and acute on chronic gastritis ulcer. The patient will be closely monitored and his white count is elevated. PAST MEDICAL HISTORY: Reviewed. REVIEW OF SYSTEMS: 14-point review is negative. CURRENT MEDICATIONS: Reviewed include ceftriaxone. Dose and rest of medications reviewed. PHYSICAL EXAMINATION: VITAL SIGNS: Pulse 55, blood pressure 110/82, respirations 16. HEENT: Conjunctivae normal. NECK: No jugular venous distention. RESPIRATIONS: A few scattered rhonchi. ABDOMEN: Soft. Significant tenderness in the upper abdomen and also right hypochondrium also present. Bowel sounds diminished. No mass. No ascites. LEGS: No edema. NERVOUS SYSTEM: Nonfocal. LABORATORY DATA: Reviewed. ASSESSMENT: 1. Severe abdominal pain, possibly secondary to colitis from transverse colon to descending colon. 2. Possible acute on chronic gastritis and reflux esophagitis. 3. Elevated WBC. 4. Remote history of EtOH. 5. History of nicotine dependence. RECOMMENDATIONS AND DISCUSSION: This is a 38-year-old gentleman, who presented with multiple complex medical issues. We will monitor the patient closely. We will initiate broad-spectrum antibiotics as well as symptomatic treatment with Protonix and pain management. Closely follow with Surgery. DVT prophylaxis. Prognosis extremely guarded because of multiple complex medical issues. PRN Ativan. Further recommendations to follow. See orders for further details. MMODL / IJN: [id number] /
[2023-12-14] MEDS: HYDROmorphone 1 MG/ML 1 ML SYRINGE IVP PRN (15:14)
[2023-12-14] MEDS: PIPERACILLIN-TAZOBACTAM 3.375 GM in SODIUM CHLORIDE 0.9% 100 ML IVPB SCH (15:18)
[2023-12-14] MEDS: HEPARIN SODIUM,PORCINE 5,000 UNIT/ML 1 ML VIAL SQ SCH (15:25)
[2023-12-14] MEDS: KETOROLAC 15 MG/ML 1 ML VIAL IVP SCH (15:27)
--- NOTE | 2023-12-14 15:36 | NM ---
EXAMINATION TYPE: NM hepatobiliary w CCK DATE OF EXAM: 12/14/2023 3:03 PM COMPARISON: Ultrasound same day. CLINICAL INDICATION:Male, 38 years old with history of Right upper quadrant pain; TECHNIQUE: The patient was given 5.2 mCi of Technetium 99m-Mebrofenin as a radiotracer and multiple scintigraphic images were obtained of the abdomen. Gallbladder function was also assessed after the a dministration of 1.8 mcg of Kinevac and additional scintigraphic images were obtained of the abdomen. A region of interest was drawn over the gallbladder and a timing activity curve was generated. The g allbladder ejection fraction was calculated. Kinevac: 1.8 mcg FINDINGS: Normal uptake of radiotracer was identified within the liver with excretion into the hepatic and comm on biliary ducts within 6 minutes. There was normal progressive washout of the liver over the course of the study. Radiotracer uptake within the gallbladder at 8 minutes as well as small bowel activit y was identified at 240. Maximum calculated gallbladder ejection fraction is: 80% at 30 minutes (Normal gallbladder ejection fraction is > 35%) IMPRESSION: 1. Normal hepatobiliary scan. No evidence for acute cholecystitis. 2. Normal ejection fraction.
--- NOTE | 2023-12-15 11:27 | P.PN ---
Subjective Progress Note Date: 12/15/23 CHIEF COMPLAINT: Abdominal pain HISTORY OF PRESENT ILLNESS: Patient is status post EGD which revealed GERD with erosive esophagitis and acute on chronic gastritis. Patient continues to have abdominal pain in the right upper quadrant epigastric area. Gallbladder ultrasound reports gallbladder wall thickening and pericholecystic fluid and the present of positive Bazan sign. Findings suggest acute cholecystitis. HIDA scan is normal. Normal ejection fraction. PHYSICAL EXAM: VITAL SIGNS: Reviewed GENERAL: Well-developed in no acute distress. HEENT: No sclera icterus. Extraocular movements grossly intact. Moist buccal mucosa. Head is atraumatic, normocephalic. Hears conversational speech. No nasal drainage. NECK: Supple without lymphadenopathy. CHEST: Non-labored respirations and equal bilateral excursions. CARDIOVASCULAR: Palpable 2+ radial pulses. ABDOMEN: Soft. Nondistended. Nontender. MUSCULOSKELETAL: No clubbing or cyanosis. NEUROLOGIC: No focal or lateralizing signs. Cranial nerves II through XII grossly intact. PSYCH: Appropriate affect. Alert and oriented to person, place and time. SKIN: Well perfused. Good skin turgor. ASSESSMENT: 1. Acute cholecystitis with right upper quadrant abdominal pain 2. Intractable nausea and vomiting 3. Gastroesophageal reflux disease with erosive esophagitis 4. Acute on chronic gastritis PLAN: -Patient scheduled for Robotic cholecystectomy tomorrow, 12/16/[address] Ramos -Continue antibiotics -N.p.o. after midnight -Continue IV Protonix and Carafate Physician Oncology Technician note has been reviewed by physician. Signing provider agrees with the documented findings, assessment, and plan of care. Objective - Vital Signs Vital signs: Vital Signs Temp 98.5 F 12/15/23 07:32 Pulse 54 L 12/15/23 07:32 Resp 16 12/15/23 07:32 BP 121/82 12/15/23 07:32 Pulse Ox 97 12/15/23 09:03 FiO2 Intake & Output 12/14/23 12/15/23 12/15/23 18:59 06:59 18:59 Intake Total 100 118 Balance 100 118 Intake: IV 100 Oral 118 Other: Voiding Method Toilet Toilet # Voids 1 3 - Labs CBC & Chem 7: 12/14/23 06:31 12/14/23 06:31 Labs: Abnormal Lab Results - Last 24 Hours (Table) 12/14/23 Range/Units 06:31 Calcium 8.6 L (8.7-10.3) mg/dL
--- NOTE | 2023-12-15 11:58 | P.CONS ---
History of Present Illness - Reason for Consult Consult date: 12/14/23 Colitis questionable Requesting physician: Xuan Ornelas - Chief Complaint Abdominal pain and vomiting x few days - History of Present Illness Patient is a 38-year-old male with no significant past medical history current everyday smoker presenting to the hospital 2 days ago for evaluation of abdominal pain which has been mostly in the right upper quadrant and epigastric area, patient describes the pain to be sharp moderate to severe intensity without any significant radiation however did have associated intractable nausea and vomiting and unable to keep anything down patient denies having any diarrhea and denies high-grade fever or any chills patient on presentation to the hospital was afebrile and no fever have recorded subsequently patient was not tachycardic hypotensive or hypoxic, patient admitted to the hospital hemoglobin 16.4 with a left shift there is down to 9.4 as of this morning creatinine has been normal electrolytes are normal liver enzymes normal lactic acid was 2 point 2 repeat is 1.5 urine has been negative urine testing was positive for opiates and marijuana did have abdominal pelvis CT mild circumferential wall thickening of the mid transverse colon extending to the descending colon which may be underdistention versus colitis patient did have a gallbladder ultrasound gallbladder wall thickening and pericholecystic fluid in the presence of positive sonographic Bazan sign suggestive of acute cholecystitis patient is currently on Zosyn infectious was consulted for further management of antibiotic therapy Review of Systems Positive point and negatives has been mentioned in the HPI, complete review of systems was performed and all other systems are negative Past Medical History Past Medical History: No Reported History History of Any Multi-Drug Resistant Organisms: None Reported Past Surgical History: No Surgical Hx Reported Past Anesthesia/Blood Transfusion Reactions: No Reported Reaction Past Psychological History: No Psychological Hx Reported Smoking Status: Current some day smoker Past Alcohol Use History: None Reported Past Drug Use History: None Reported Medications and Allergies Home Medications Medication Instructions Recorded Confirmed Type Omeprazole 40 mg PO DAILY 12/13/23 12/13/23 History Ondansetron Odt [Zofran ODT] 4 mg PO TID PRN 12/13/23 12/13/23 History Sucralfate [Carafate] 1 gm PO ACHS 12/13/23 12/13/23 History Acetaminophen [Tylenol] 650 mg PO Q6H PRN #60 capsule 12/18/23 Rx Amoxic-Pot Clav 875-125Mg 1 tab PO Q12HR 3 Days #6 tab 12/18/23 Rx [Augmentin 875-125] Docusate [Colace] 100 mg PO BID #60 cap 12/18/23 Rx Nicotine 14Mg/24Hr Patch [Habitrol] 1 patch TRANSDERM HS patch 12/18/23 Rx Simethicone 40 mg/0.6 ml Drops 80 mg PO PCHS #5 ml 12/18/23 Rx [Mylicon Drops] Allergies Allergy/AdvReac Type Severity Reaction Status Date / Time No Known Allergies Allergy Verified 12/13/23 08:58 Physical Exam Vitals: Vital Signs Temp Pulse Resp BP BP Pulse Ox 12/14/23 11:07 55 L 112/72 100 12/14/23 10:55 98.3 F 51 L 16 128/81 99 12/14/23 07:39 98.5 F 55 L 16 129/85 98 12/14/23 00:18 97.9 F 56 L 15 112/75 97 12/13/23 19:01 98.3 F 56 L 15 103/65 94 L 12/13/23 13:30 98.3 F 18 122/83 98 Intake and Output 12/13/23 12/14/23 12/14/23 22:59 06:59 14:59 Intake Total 0 100 Balance 0 100 Intake: IV 100 Oral 0 Other: # Voids 4 2 GENERAL DESCRIPTION: Middle-aged male lying in bed, no distress. No tachypnea or accessory muscle of respiration use. HEENT: Shows Pallor , no scleral icterus. Oral mucous membrane is dry. No pharyngeal erythema or thrush NECK: Trachea central, no thyromegaly. LUNGS: Unlabored breathing. Clear to auscultation anteriorly. No wheeze or crackle. HEART: S1, S2, regular rate and rhythm. No loud murmur ABDOMEN: Soft, right upper quadrant tenderness EXTREMITIES: No edema of feet. SKIN: No rash, no masses palpable. NEUROLOGICAL: The patient is awake, alert, oriented x3, mood and affect normal. Results CBC & Chem 7: 12/18/23 06:49 12/18/23 06:49 Labs: Abnormal Lab Results - Last 24 Hours (Table) 12/14/23 Range/Units 06:31 Calcium 8.6 L (8.7-10.3) mg/dL Assessment and Plan (1) Cholecystitis Status: Acute Code(s): K81.9 - CHOLECYSTITIS, UNSPECIFIED SNOMED Code(s): 10369590 (2) Colitis Status: Acute Code(s): K52.9 - NONINFECTIVE GASTROENTERITIS AND COLITIS, UNSPECIFIED SNOMED Code(s): 73627680 Plan: 1patient presented to hospital with intractable epigastric right upper quadrant pain this patient who did have right upper quadrant tenderness did have elevated white count normal ultrasound suspicious for cholecystitis HIDA scan has been ordered General surgery is on the case there was a concern for possible colitis involving the transverse colon which may be contribute some of his symptoms of epigastric pain but denies having significant diarrhea 2stool studies has been ordered results will be followed. 3patient to continue with Zosyn 3.375 g every 8 hours. we will follow on clinical condition and cultures to further adjust medication if needed Thank you for this consultation we will follow the patient along with you Dictation was produced using [employer] dictation software. please excuse any grammatical, word or spelling errors. Time with Patient: Greater than 30
--- NOTE | 2023-12-15 12:50 | P.PN ---
Subjective Progress Note Date: 12/15/23 Principal diagnosis: Reason for follow-up is colitis and possible cholecystitis 12/15/2023, the patient continues to be afebrile, the patient is on room air and breathing comfortably, the Pt denies having any chest pain or cough, the patient continued complaint of pain to the right upper quadrant and epigastric area did have some nausea did not have any bowel movement. Patient white count is 9.48, creatinine 0.6 no blood work done today Objective - Vital Signs Vital signs: Vital Signs Temp 98.5 F 12/15/23 07:32 Pulse 54 L 12/15/23 07:32 Resp 16 12/15/23 07:32 BP 121/82 12/15/23 07:32 Pulse Ox 97 12/15/23 09:03 FiO2 Intake & Output 12/14/23 12/15/23 12/15/23 18:59 06:59 18:59 Intake Total 100 118 Balance 100 118 Intake: IV 100 Oral 118 Other: Voiding Method Toilet Toilet # Voids 1 3 - Exam GENERAL DESCRIPTION: Young male lying in bed in no distress RESPIRATORY SYSTEM: Unlabored breathing , decreased breath sounds at bases HEART: S1 S2 regular rate and rhythm , ABDOMEN: Soft , right upper quadrant tenderness EXTREMITIES: No edema feet - Labs CBC & Chem 7: 12/14/23 06:31 12/14/23 06:31 Labs: Abnormal Lab Results - Last 24 Hours (Table) 12/14/23 Range/Units 06:31 Calcium 8.6 L (8.7-10.3) mg/dL Assessment and Plan (1) Cholecystitis Current Visit: Yes Status: Acute Code(s): K81.9 - CHOLECYSTITIS, UNSPECIFIED SNOMED Code(s): 66591532 (2) Colitis Current Visit: Yes Status: Acute Code(s): K52.9 - NONINFECTIVE GASTROENTERITIS AND COLITIS, UNSPECIFIED SNOMED Code(s): 12100422 Plan: 1patient presented to hospital with intractable epigastric right upper quadrant pain this patient who did have right upper quadrant tenderness did have elevated white count normal ultrasound suspicious for cholecystitis HIDA scan has been ordered General surgery is on the case there was a concern for possible colitis involving the transverse colon which may be contribute some of his symptoms of epigastric pain but denies having significant diarrhea 2stool studies has been ordered results will be followed. 3patient to continue with Zosyn 3.375 g every 8 hours possible plan for cholecystectomy in the a.m. as per discussion with the patient Dictation was produced using [employer] dictation software. please excuse any gr ammatical, word or spelling errors. Time with Patient: Less than 30
--- NOTE | 2023-12-15 21:30 | PN ---
PROGRESS NOTE DATE OF SERVICE: 12/15/2023 SUBJECTIVE: This is a 38-year-old gentleman who was admitted with severe abdominal pain, possibly secondary to colitis from transverse colon, descending colon, is complaining of extremely severe abdominal pain at this time. The Dilaudid dose has been increased, HIDA scan did not show any abnormality including normal ejection fraction. Multiple consultants are following the patient closely. The amylase, lipase, are procalcitonin normal. PAST MEDICAL HISTORY: Reviewed. REVIEW OF SYSTEMS: A 14-point review is negative except as mentioned. CURRENT MEDICATIONS: Reviewed include IV Dilaudid, rest of medications noted. PHYSICAL EXAMINATION: VITAL SIGNS: Pulse 55, blood pressure 130/80, respirations 15. HEENT: Conjunctivae normal. NECK: No jugular venous distention. RESPIRATIONS: Diminished at the bases. ABDOMEN: Soft, mild diffuse tenderness. LEGS: No edema. NERVOUS SYSTEM: No focal deficits. LABORATORY DATA: Reviewed. ASSESSMENT: 1. Acute severe abdominal pain, possibly secondary to colitis from transverse colon to descending colon. 2. Possible acute on chronic gastritis with reflux esophagitis. 3. Elevated WBC, improved. 4. Remote history of EtOH. 5. History of nicotine dependence. RECOMMENDATIONS: Recommended to continue current management, continue symptomatic treatment. Otherwise, I would recommend further labs, repeat labs and continue broad-spectrum IV antibiotics. Guarded prognosis. Further recommendations to follow. MMODL / IJN: [id number] /
[2023-12-16 11:18] LABS: Basophils # (A) 0.07 X 10*3/uL (0.00-0.10); Basophils % (A) 0.8 %; Eosinophils # (A) 0.26 X 10*3/uL (0.04-0.35); Eosinophils % (A) 2.8 %; HCT 40.5 % (39.6-50.0); HGB 14.3 g/dL (13.0-17.0); Lymphocytes # (A) 1.75 X 10*3/uL (0.90-5.00); Lymphocytes % (A) 18.9 %; MCHC 35.3 g/dL (32.0-37.0); MCV 87.9 FL (80.0-97.0); Mean Platelet Volume 10.2 FL (9.5-12.2); Monocytes # (A) 0.78 X 10*3/uL (0.20-1.00); Monocytes % (A) 8.4 %; NRBC Per 100 WBC 0 X 10*3/uL (0.00-0.01); Neutrophils # (A) 6.35 X 10*3/uL (1.80-7.70); Neutrophils % (A) 68.5 %; Platelet Count 244 X 10*3/uL (140-440); RBC 4.61 X 10*6/uL (4.40-5.60); RDW 11.7 % (11.5-14.5); WBC 9.27 X 10*3/uL (4.50-10.00)
[2023-12-16 11:35] LABS: ALT 29 U/L (10-49); AST 20 U/L (14-35); Albumin 4.1 g/dL (3.8-4.9); Albumin/Globulin Ratio 2.05 Ratio (1.60-3.17); Alkaline Phosphatase 38 U/L (41-126); Blood Urea Nitrogen 3.9 mg/dL (9.0-27.0); Calcium 9.1 mg/dL (8.7-10.3); Carbon Dioxide 19.6 mmol/L (21.6-31.8); Chloride 102 mmol/L (96-109); Glucose 119 mg/dL (70-110); Potassium 3.7 mmol/L (3.5-5.5); Sodium 137 mmol/L (135-145); Total Bilirubin 0.6 mg/dL (0.3-1.2); Total Protein 6.1 g/dL (6.2-8.2)
[2023-12-16] MEDS: ONDANSETRON 4 MG/2 ML VIAL IVP ONE (11:36)
--- NOTE | 2023-12-16 13:05 | PN ---
PROGRESS NOTE DATE OF SERVICE: 12/16/2023 SUBJECTIVE: This 38-year-old gentleman was admitted with acute severe abdominal pain, possibly colitis from transverse colon, descending colon, also had acute cholecystitis. The patient has severe persistent pain, surgery is being planned today. OBJECTIVE: VITAL SIGNS: Pulse is 52, blood pressure 143/87, respirations 16. CHEST: Clear to auscultation. CARDIOVASCULAR: S1, S2. ABDOMEN: Soft, significant tenderness in the upper abdomen. No guarding, no rigidity, no masses palpable. LABORATORY DATA: Reviewed. ASSESSMENT: 1. Acute severe abdominal pain with acute cholecystitis. 2. Possibly colitis from transverse colon to descending colon. 3. Possible acute on chronic gastritis, reflux esophagitis. 4. Elevated WBC, improved. 5. Remote history of EtOH. 6. History of nicotine dependence. 7. Severe abdominal pain. RECOMMENDATIONS: Recommended to continue current management, continue with pain management. I would recommend repeat labs tomorrow and possible surgery and closely follow with multiple consultants. Prognosis guarded. Further recommendations to follow. MMODL / IJN: [id number] /
[2023-12-16] MEDS: IV FLUID CONTINUATION 1,000 ML IV ONE (13:37)
[2023-12-16] MEDS: DEXAMETHASONE SOD PHOSPHATE 4 MG/ML 1 ML VIAL IV ONE (13:47)
[2023-12-16] MEDS: fentaNYL (PF) 50 MCG/ML 2 ML AMP IVP ONE (14:32)
[2023-12-16] MEDS: MIDAZOLAM 2 MG/2 ML VIAL IVP ONE (14:32)
[2023-12-16] MEDS ORDERED: ROCURONIUM 10 MG/ML (5 ML VIAL) IV ONE (16:05)
[2023-12-16] MEDS ORDERED: PROPOFOL 10 MG/ML 20 ML VIAL IV ONE (16:05)
[2023-12-16] MEDS ORDERED: LIDOCAINE 1% INJ 10MG/ML (20 ML MDV) ONE (16:05)
[2023-12-16] MEDS ORDERED: fentaNYL (PF) 50 MCG/ML 2 ML AMP ONE (16:05)
[2023-12-16] MEDS ORDERED: KETOROLAC 15 MG/ML 1 ML VIAL ONE (16:05)
[2023-12-16] MEDS ORDERED: MIDAZOLAM 2 MG/2 ML VIAL ONE (16:05)
[2023-12-16] MEDS ORDERED: GLYCOPYRROLATE 0.2 MG/ML 2 ML VIAL ONE (16:05)
[2023-12-16] MEDS ORDERED: diphenhydrAMINE 50 MG/ML 1 ML VIAL ONE (16:05)
[2023-12-16] MEDS ORDERED: HYDROmorphone (PF) 1 MG/ML ONE (16:05)
[2023-12-16] MEDS ORDERED: ONDANSETRON 4 MG/2 ML VIAL ONE (16:05)
[2023-12-16] MEDS ORDERED: SUCCINYLCHOLINE CHLORIDE 200 MG/10 ML VIAL IV ONE (16:05)
[2023-12-16] MEDS ORDERED: NEOSTIGMINE 1 MG/ML 10 ML VIAL ONE (16:05)
--- NOTE | 2023-12-16 16:08 | P.HPADDEND ---
H&P Addendum H&P Addendum Date: 12/16/23 Diagnostic studies including ultrasound of the gallbladder consistent with thickened gallbladder wall findings of clinical cholecystitis. Patient reports intolerance to fatty foods including right upper quadrant abdominal pain, intractable nausea and vomiting. Reports severe intractable right upper phan drant pain. Robotic cholecystectomy described.
[2023-12-16] MEDS: LACTATED RINGERS 1,000 ML IV ONE ×2 (16:20→18:13)
[2023-12-16] MEDS: LIDOCAINE 2%-EPI 1:100,000 20 ML VIAL SQ ONE (16:42)
--- NOTE | 2023-12-16 17:10 | P.PN ---
Subjective Progress Note Date: 12/16/23 Principal diagnosis: Reason for follow-up is colitis and possible cholecystitis Patient is a 38-year-old male with no significant past medical history current everyday smoker presenting to the hospital for evaluation of right upper quadrant and epigastric pain did have a CT abdominal pelvis concerning for circumferential wall thickening is also concerning for gallbladder wall thickening concerning for cholecystitis 12/16/2023, Patient is afebrile patient is currently on room air and denies having any shortness of breath, the patient denies any chest pain or cough, the patient currently complaining of right upper quad abdominal pain nausea asking for more pain medication no vomiting or diarrhea reported by the nursing staff. Patient white count 9.27, creatinine 0.6 Objective - Vital Signs Vital signs: Vital Signs Temp 97.9 F 12/16/23 13:40 Pulse 62 12/16/23 14:52 Resp 16 12/16/23 14:52 BP 136/91 12/16/23 14:52 Pulse Ox 93 L 12/16/23 14:52 FiO2 Intake & Output 12/15/23 12/16/23 12/16/23 18:59 06:59 18:59 Intake Total 336 300 Balance 336 300 Intake: IV 300 Oral 336 Other: Voiding Method Toilet # Voids 3 3 - Exam GENERAL DESCRIPTION: Young male lying in bed in no distress RESPIRATORY SYSTEM: Unlabored breathing , decreased breath sounds at bases HEART: S1 S2 regular rate and rhythm , ABDOMEN: Soft , mild right upper quadrant tenderness EXTREMITIES: No edema feet - Labs CBC & Chem 7: 12/16/23 06:39 12/16/23 06:39 Labs: Abnormal Lab Results - Last 24 Hours (Table) 12/16/23 12/16/23 Range/Units 06:39 06:39 Immature Gran # 0.06 H (0.00-0.04) X 10*3/uL Carbon Dioxide 19.6 L (21.6-31.8) mmol/L Anion Gap 15.40 H (4.00-12.00) mmol/L BUN 3.9 L (9.0-27.0) mg/dL BUN/Creatinine Ratio 6.50 L (12.00-20.00) Ratio Glucose 119 H (70-110) mg/dL Alkaline Phosphatase 38 L (41-126) U/L Total Protein 6.1 L (6.2-8.2) g/dL Assessment and Plan (1) Cholecystitis Current Visit: Yes Status: Acute Code(s): K81.9 - CHOLECYSTITIS, UNSPECIFIED SNOMED Code(s): 82177577 (2) Colitis Current Visit: Yes Status: Acute Code(s): K52.9 - NONINFECTIVE GASTROENTERITIS AND COLITIS, UNSPECIFIED SNOMED Code(s): 04356938 Plan: 1patient presented to hospital with intractable epigastric right upper quadrant pain this patient who did have right upper quadrant tenderness did have elevated white count normal ultrasound suspicious for cholecystitis HIDA scan has been ordered General surgery is on the case there was a concern for possible colitis involving the transverse colon which may be contribute some of his symptoms of epigastric pain but denies having significant diarrhea 2stool studies has been ordered results will be followed. 3patient to continue with Zosyn 3.375 g every 8 hours plan is for possible cholecystitis this afternoon and monitor clinical course closely Dictation was produced using Segm[employer] dictation software. please excuse any grammatical, word or spelling errors. Time with Patient: Less than 30
--- NOTE | 2023-12-16 18:11 | P.OP ---
Date of Procedure: 12/16/23 Description of Procedure: SURGEON: GAIL GUTIERREZ MD PREOPERATIVE DIAGNOSES: 1. Intractable right upper quadrant abdominal pain due to acute cholecystitis 2. Colitis 3. Tobacco abuse disorder POSTOPERATIVE DIAGNOSES: 1. Intractable right upper quadrant abdominal pain due to acute cholecystitis 2. Colitis 3. Tobacco abuse disorder OPERATION: Robotic-assisted da Randolph Xi laparoscopic cholecystectomy, multiport with FIREFLY ESTIMATED BLOOD LOSS: 5 mL. SPECIMENS REMOVED: Gallbladder. COMPLICATIONS: None. OPERATIVE FINDINGS: 1. Acute cholecystitis with thickened gallbladder wall 2. Common bile duct within normal limits, without dilation 3. Redundant sigmoid colon 4. Adhesions about gallbladder consistent with acute on chronic cholecystitis INDICATIONS: The patient is a 38 year-old female who presents with intractable right upper quadrant epigastric abdominal pain, intractable nausea and vomiting, colitis, leukocytosis. Diagnostic studies demonstrated acute cholecystitis. Surgical intervention with cholecystectomy was described. Robotic assisted lapa roscopic approach was described. Benefits and risks of the procedure including but not limited to bleeding, infection, injury to the biliary tree was reviewed. Informed consent was obtained. DESCRIPTION OF PROCEDURE: Patient was brought to the operating room, placed in supine position. After general induction, the abdomen had been prepped and draped in standard sterile fashion. The robotic da Randolph XI system was primed. After a timeout protocol was performed, the patient had been prepped and draped in standard sterile fashion. The patient was injected with indocyanine green. A 5 mm 0 degrees laparoscopic trocar entry was performed along the left upper quadrant. The abdomen insufflated to 15 mmHg pressure which was tolerated well. Diagnostic laparoscopy demonstrated no injury to bowel viscera or mesentery. The liver surface was remarkable for fatty liver. Next, two 8 mm robotic ports were placed along the right upper abdomen. The camera 8-mm port was maintained along the epigastrium. Another 8 mm port was placed along the left upper abdominal wall after exchanging the 5 mm port. Please note that the ports were placed at least 10 to 15 cm away from the target anatomy of the gallbladder. The robot was docked along the left lateral abdomen. The patient was repositioned in reverse Trendelenburg position at 25 degrees with the right side up. Using a grasper for arm 3, a grasper for arm 4, including hook cautery for arm 1, the robotic system was docked and primed as described. Instruments were interchanged by the assistant signal maintainer including hook cautery, Bovie cautery and clip appliers. I had sat at the console. The gallbladder was reflected towards the dome of the liver. Initial dissection was performed on the gallbladder infundibulum using indocyanine green to illuminate the cystic duct and common bile duct. Dome down technique was performed removing the gallbladder from the hepatic fossa starting from the fundus towards the infundibulum. Using a sponge, the liver was reflected towards the diaphragm and starting at the gallbladder fundus, hook cautery was used to find the avascular plane between the liver and the gallbladder. As the gallbladder was dissected from the hepatic fossa, hemostasis was checked using vessel sealer along the posterior gallbladder. Next, indocyanine green was used to confirm the common bile duct as well as cystic duct. The infundibulum was retracted laterally to expose the cystic duct away from the common bile duct. The cystic duct was dissected free from its surrounding tissue. FIREFLY was used to identify the cystic structures. A critical view of safety was obtained. Large PLASTIC clips were used throughout the entire case. Using a clip computational mathematician, a clip was placed at the junction of the infundibulum and cystic duct. The cystic duct was divided using vessel sealer. Next, the cystic artery was divided using vessel sealer. Electro-Bovie cautery and vessel sealer was used to remove the gallbladder wit hout decompression. Hemostasis was checked and found to be adequate. The robot was undocked. I re-scrubbed into the case. A 10 mm Endo Catch bag was used to remove the gallbladder in total via the left upper quadrant incision after widening the incision. The specimen was removed from the abdominal cavity. Mukund Fields and 0 Vicryl was used to close the fascial defect of the left upper quadrant. All pneumoperitoneum instruments were evacuated from the abdominal cavity. The incisions were cleansed using dilute hydrogen peroxide. The incisions were reapproximated using 4-0 Monocryl in an interrupted subcuticular fashion. Please note along the trocar sites, local anesthetic was placed as a field block prior to insertion of all instruments. Liquid glue was applied to the skin. At the end of the procedure needle, sponge, and instrument count had been verified correct by the surgical instruments inspector. The patient was transferred to postanesthesia care unit in stable condition. Intraoperative films were shared with the patient's family who were pleased with the level of care.
[2023-12-16] MEDS: HYDROmorphone 1 MG/ML 1 ML SYRINGE IVP ONE (18:13)
[2023-12-16] MEDS: HYDROmorphone 1 MG/ML 1 ML SYRINGE IVP SCH (18:40)
[2023-12-16] MEDS: LACTATED RINGERS 1,000 ML IV SCH (18:47)
[2023-12-16] MEDS: INDOCYANINE GREEN 25 MG VIAL IV STA (18:47)
[2023-12-16] MEDS: HYDROcodone/APAP 5-325MG 1 EACH TAB PO PRN (22:27)
[2023-12-17] MEDS: PIPERACILLIN-TAZOBACTAM 3.375 GM in SODIUM CHLORIDE 0.9% 100 ML IVPB SCH (00:01)
[2023-12-17] MEDS: ACETAMINOPHEN IV (For NPO) 1,000 MG in EMPTY BAG 1 BAG IVPB SCH (01:15)
[2023-12-17] MEDS: HYDROmorphone 1 MG/ML 1 ML SYRINGE IVP PRN ×3 (03:02→17:50)
[2023-12-17] MEDS ORDERED: HYDROmorphone 0.5 MG/0.5 ML SYRINGE IVP PRN (07:00)
[2023-12-17 08:50] LABS: Basophils # (A) 0.04 X 10*3/uL (0.00-0.10); Basophils % (A) 0.3 %; Eosinophils # (A) 0.04 X 10*3/uL (0.04-0.35); Eosinophils % (A) 0.3 %; HCT 43.9 % (39.6-50.0); HGB 15.6 g/dL (13.0-17.0); Lymphocytes # (A) 1.82 X 10*3/uL (0.90-5.00); Lymphocytes % (A) 12.5 %; MCHC 35.5 g/dL (32.0-37.0); MCV 87.3 FL (80.0-97.0); Mean Platelet Volume 10.1 FL (9.5-12.2); Monocytes # (A) 1.16 X 10*3/uL (0.20-1.00); NRBC Per 100 WBC 0 X 10*3/uL (0.00-0.01); Neutrophils # (A) 11.45 X 10*3/uL (1.80-7.70); Neutrophils % (A) 78.4 %; Platelet Count 279 X 10*3/uL (140-440); RBC 5.03 X 10*6/uL (4.40-5.60); RDW 11.7 % (11.5-14.5); WBC 14.59 X 10*3/uL (4.50-10.00)
[2023-12-17 09:47] LABS: BUN/Creat Ratio <5.83 Ratio (12.00-20.00); Blood Urea Nitrogen <3.5 mg/dL (9.0-27.0); Calcium 9.1 mg/dL (8.7-10.3); Carbon Dioxide 19.6 mmol/L (21.6-31.8); Chloride 104 mmol/L (96-109); Glucose 110 mg/dL (70-110); Sodium 138 mmol/L (135-145)
[2023-12-17] MEDS: HYDROcodone/APAP 5-325MG 1 EACH TAB PO PRN (10:16)
[2023-12-17] MEDS: SIMETHICONE 40 MG/0.6 ML DROPS 2,000 MG/30 ML BOTTLE PO SCH (12:39)
[2023-12-17] MEDS: LORazepam 0.5 MG TAB PO PRN (13:02)
[2023-12-17] MEDS ORDERED: HYDROmorphone PCA 10 MG/50 ML BAG IV PRN (13:17)
[2023-12-17] MEDS ORDERED: NALOXONE 0.4 MG/ML 1 ML VIAL IV PRN (13:17)
--- NOTE | 2023-12-17 13:24 | P.PN ---
Subjective Progress Note Date: 12/17/23 Principal diagnosis: Reason for follow-up is colitis and possible cholecystitis Patient is a 38-year-old male with no significant past medical history current everyday smoker presenting to the hospital for evaluation of right upper quadrant and epigastric pain did have a CT abdominal pelvis concerning for circumferential wall thickening is also concerning for gallbladder wall thickening concerning for cholecystitis, Patient is status post laparoscopic cholecystectomy completed on 12/16/2023. On today's evaluation that is 12/17/2023, patient has been afebrile, patient is breathing comfortably and is currently on room air, patient denies having any significant cough no chest pain shortness of breath, patient still complaining of abdominal pain and wants more pain medication nausea but no vomiting no bowel movement. Patient white count is 14.59 today, creatinine 0.6 Objective - Vital Signs Vital signs: Vital Signs Temp 98.2 F 12/17/23 07:10 Pulse 58 L 12/17/23 07:10 Resp 16 12/17/23 07:10 BP 135/85 12/17/23 07:10 Pulse Ox 99 12/17/23 07:10 FiO2 Intake & Output 12/16/23 12/17/23 12/17/23 18:59 06:59 18:59 Intake Total 1400 Output Total 5 Balance 1395 Intake: IV 1400 Output: Estimated Blood Loss 5 Other: Voiding Method Toilet Toilet # Voids 2 - Exam GENERAL DESCRIPTION: Young male lying in bed in no distress RESPIRATORY SYSTEM: Unlabored breathing , decreased breath sounds at bases HEART: S1 S2 regular rate and rhythm , ABDOMEN: Soft , mild right upper quadrant tenderness EXTREMITIES: No edema feet - Labs CBC & Chem 7: 12/17/23 05:42 12/17/23 05:42 Labs: Abnormal Lab Results - Last 24 Hours (Table) 12/17/23 12/17/23 Range/Units 05:42 05:42 WBC 14.59 H (4.50-10.00) X 10*3/uL Immature Gran # 0.08 H (0.00-0.04) X 10*3/uL Neutrophils # 11.45 H (1.80-7.70) X 10*3/uL Monocytes # 1.16 H (0.20-1.00) X 10*3/uL Carbon Dioxide 19.6 L (21.6-31.8) mmol/L Anion Gap 14.40 H (4.00-12.00) mmol/L BUN <3.5 L (9.0-27.0) mg/dL BUN/Creatinine Ratio <5.83 L (12.00-20.00) Ratio Assessment and Plan (1) Cholecystitis Current Visit: Yes Status: Acute Code(s): K81.9 - CHOLECYSTITIS, UNSPECIFIED SNOMED Code(s): 54423592 (2) Colitis Current Visit: Yes Status: Acute Code(s): K52.9 - NONINFECTIVE GASTROENTERITIS AND COLITIS, UNSPECIFIED SNOMED Code(s): 66042058 Plan: 1patient presented to hospital with intractable epigastric right upper quadrant pain this patient who did have right upper quadrant tenderness did have elevated white count normal ultrasound suspicious for cholecystitis HIDA scan has been ordered General surgery is on the case there was a concern for possible colitis involving the transverse colon which may be contribute some of his symptoms of epigastric pain but denies having significant diarrhea 2stool studies has been ordered but not collected 3patient is status post cholecystectomy patient did have elevated white count today possibly reactive postsurgery and will monitor closely and for now will continue with Zosyn 3.375 g every 8 hours monitor clinical course closely Dictation was produced using TEEspy dictation software. please excuse any grammatical, word or spelling errors. Time with Patient: Less than 30
--- NOTE | 2023-12-17 15:21 | XR ---
EXAMINATION TYPE: XR chest 1V portable DATE OF EXAM: 12/17/2023 3:00 PM CLINICAL INDICATION:Male, 38 years old with history of atelectasis; COMPARISON: Chest radiographs from TECHNIQUE: XR chest 1V portable Frontal view of the chest. FINDINGS: Lungs/Pleura: Right basilar atelectasis. There is no evidence of pleural effusion, focal consolidatio n, or pneumothorax. Pulmonary vascularity: Unremarkable. Heart/mediastinum: Cardiomediastinal silhouette is unremarkable. Musculoskeletal: No acute osseous pathology. IMPRESSION: No acute cardiopulmonary disease/process.
--- NOTE | 2023-12-17 16:02 | P.PN ---
Subjective Progress Note Date: 12/17/23 CHIEF COMPLAINT: Abdominal pain HISTORY OF PRESENT ILLNESS: Patient postop day #1 status post robotic cho lecystectomy. Patient is status post EGD which revealed GERD with erosive esophagitis and acute on chronic gastritis. Patient continues to complain of abdominal pain. But reports that the pain is more incisional pain. Patient denies any flatus. Reports nausea. He is ambulating minimally per nursing staff. Afebrile. WBC is up to 14 PHYSICAL EXAM: VITAL SIGNS: Reviewed GENERAL: Well-developed in no acute distress. HEENT: No sclera icterus. Extraocular movements grossly intact. Moist buccal mucosa. Head is atraumatic, normocephalic. Hears conversational speech. No nasal drainage. NECK: Supple without lymphadenopathy. CHEST: Non-labored respirations and equal bilateral excursions. CARDIOVASCULAR: Palpable 2+ radial pulses. ABDOMEN: Soft. Nondistended. Tender at incision sites MUSCULOSKELETAL: No clubbing or cyanosis. NEUROLOGIC: No focal or lateralizing signs. Cranial nerves II through XII grossly intact. PSYCH: Appropriate affect. Alert and oriented to person, place and time. SKIN: Well perfused. Good skin turgor. ASSESSMENT: 1. Acute cholecystitis 2. Intractable nausea and vomiting 3. Gastroesophageal reflux disease with erosive esophagitis 4. Acute on chronic gastritis 5. Expected ileus postsurgical 6. Expected leukocytosis patient did receive Decadron 7. Colitis PLAN: -Continue pain management. Pain medication adjusted per medicine service -Encourage patient to ambulate -Continue regular diet -Continue antibiotics -Patient scheduled for Robotic cholecystectomy tomorrow, 12/16/[address] Ramos -Continue antibiotics -Continue IV Protonix and Carafate -Mylicon gas drops ordered Physician Orthodontic Lab Technician note has been reviewed by physician. Signing provider agrees with the documented findings, assessment, and plan of care. Objective - Vital Signs Vital signs: Vital Signs Temp 98.2 F 12/17/23 07:10 Pulse 58 L 12/17/23 07:10 Resp 16 12/17/23 07:10 BP 135/85 12/17/23 07:10 Pulse Ox 99 12/17/23 07:10 FiO2 Intake & Output 12/16/23 12/17/23 12/17/23 18:59 06:59 18:59 Intake Total 1400 Output Total 5 Balance 1395 Intake: IV 1400 Output: Estimated Blood Loss 5 Other: Voiding Method Toilet Toilet # Voids 2 - Labs CBC & Chem 7: 12/17/23 05:42 12/17/23 05:42 Labs: Abnormal Lab Results - Last 24 Hours (Table) 12/17/23 12/17/23 Range/Units 05:42 05:42 WBC 14.59 H (4.50-10.00) X 10*3/uL Immature Gran # 0.08 H (0.00-0.04) X 10*3/uL Neutrophils # 11.45 H (1.80-7.70) X 10*3/uL Monocytes # 1.16 H (0.20-1.00) X 10*3/uL Carbon Dioxide 19.6 L (21.6-31.8) mmol/L Anion Gap 14.40 H (4.00-12.00) mmol/L BUN <3.5 L (9.0-27.0) mg/dL BUN/Creatinine Ratio <5.83 L (12.00-20.00) Ratio
--- NOTE | 2023-12-17 20:54 | PN ---
PROGRESS NOTE DATE OF SERVICE: 12/17/2023 SUBJECTIVE: This 38-year-old gentleman was admitted with acute severe abdominal pain and acute cholecystitis, underwent a robotic-assisted laparoscopic cholecystectomy by surgery notes. The patient is still complaining of severe pain. No chest pain, no palpitation. OBJECTIVE: VITAL SIGNS: Pulse 66, blood pressure 130/39, respirations 16. CHEST: Clear to auscultation. CARDIOVASCULAR: S1, S2. ABDOMEN: Soft, status post surgery. NERVOUS SYSTEM: Nonfocal. LABORATORY DATA: WBC 14.59. ASSESSMENT: 1. Acute severe abdominal pain with acute cholecystitis. 2. Status post laparoscopic cholecystectomy. 3. Possible colitis from transverse colon to descending colon on the initial CAT scan. 4. Possible acute on chronic gastritis, reflux esophagitis. 5. Elevated WBC, improved. 6. Remote history of EtOH. 7. Severe abdominal pain. RECOMMENDATIONS: Recommend to continue current management. Continue the pain management. Closely follow with surgery, DVT prophylaxis, I would also recommend a chest x-ray for possible atelectasis. MMODL / IJN: [id number] /
[2023-12-18 08:28] VITALS: BP 128/87; PULSE 60; RESP 16; TEMP 98.1
--- NOTE | 2023-12-18 10:27 | P.PN ---
Subjective Progress Note Date: 12/18/23 CHIEF COMPLAINT: Abdominal pain HISTORY OF PRESENT ILLNESS: Patient postop day #2 status post robotic cho lecystectomy. Patient is status post EGD which revealed GERD with erosive esophagitis and acute on chronic gastritis. Patient reports that he is feeling better. Abdominal pain is improving. Pain located at incision sites. Pain is controlled. He is having flatus. He is eating. He has been up and ambulating. Afebrile. Labs for today pending. PHYSICAL EXAM: VITAL SIGNS: Reviewed GENERAL: Well-developed in no acute distress. HEENT: No sclera icterus. Extraocular movements grossly intact. Moist buccal mucosa. Head is atraumatic, normocephalic. Hears conversational speech. No nasal drainage. NECK: Supple without lymphadenopathy. CHEST: Non-labored respirations and equal bilateral excursions. CARDIOVASCULAR: Palpable 2+ radial pulses. ABDOMEN: Soft. Nondistended. Tender at incision sites MUSCULOSKELETAL: No clubbing or cyanosis. NEUROLOGIC: No focal or lateralizing signs. Cranial nerves II through XII grossly intact. PSYCH: Appropriate affect. Alert and oriented to person, place and time. SKIN: Well perfused. Good skin turgor. ASSESSMENT: 1. Acute cholecystitis 2. Intractable nausea and vomiting 3. Gastroesophageal reflux disease with erosive esophagitis 4. Acute on chronic gastritis 5. Expected ileus postsurgical 6. Expected leukocytosis patient did receive Decadron 7. Colitis PLAN: -Patient can be discharged from surgical standpoint -Discharge antibiotics per infectious disease -Continue pain management -Continue Protonix at discharge -Colace added for constipation Physician Certified Nurse Midwife note has been reviewed by physician. Signing provider agrees with the documented findings, assessment, and plan of care. Objective - Vital Signs Vital signs: Vital Signs Temp 98.1 F 12/18/23 08:00 Pulse 60 12/18/23 08:00 Resp 16 12/18/23 08:00 BP 128/87 12/18/23 08:00 Pulse Ox 95 12/18/23 08:00 FiO2 Intake & Output 12/17/23 12/18/23 12/18/23 18:59 06:59 18:59 Intake Total 240 360 Balance 240 360 Intake: Oral 240 360 Other: Voiding Method Toilet # Voids 2 5 - Labs CBC & Chem 7: 12/17/23 05:42 12/17/23 05:42
[2023-12-18 12:13] LABS: Basophils # (A) 0.08 X 10*3/uL (0.00-0.10); Basophils % (A) 0.7 %; Eosinophils # (A) 0.34 X 10*3/uL (0.04-0.35); HCT 39.1 % (39.6-50.0); HGB 13.6 g/dL (13.0-17.0); Lymphocytes # (A) 2.49 X 10*3/uL (0.90-5.00); Lymphocytes % (A) 22.3 %; MCH 30.6 pg (27.0-32.0); MCHC 34.8 g/dL (32.0-37.0); MCV 88.1 FL (80.0-97.0); Mean Platelet Volume 10.2 FL (9.5-12.2); Monocytes % (A) 9.8 %; NRBC Per 100 WBC 0 X 10*3/uL (0.00-0.01); Neutrophils # (A) 7.12 X 10*3/uL (1.80-7.70); Neutrophils % (A) 63.8 %; Platelet Count 239 X 10*3/uL (140-440); RBC 4.44 X 10*6/uL (4.40-5.60); RDW 11.9 % (11.5-14.5); WBC 11.17 X 10*3/uL (4.50-10.00)
[2023-12-18] MEDS: DOCUSATE 100 MG CAP PO SCH (12:23)
[2023-12-18 12:26] LABS: BUN/Creat Ratio 5.86 Ratio (12.00-20.00); Blood Urea Nitrogen 4.1 mg/dL (9.0-27.0); Calcium 9.1 mg/dL (8.7-10.3); Carbon Dioxide 21.5 mmol/L (21.6-31.8); Chloride 104 mmol/L (96-109); Glucose 124 mg/dL (70-110); Potassium 3.5 mmol/L (3.5-5.5); Sodium 138 mmol/L (135-145)
--- NOTE | 2023-12-18 13:11 | P.PN ---
Subjective Progress Note Date: 12/18/23 Principal diagnosis: Reason for follow-up is colitis and possible cholecystitis Patient is a 38-year-old male with no significant past medical history current everyday smoker presenting to the hospital for evaluation of right upper quadrant and epigastric pain did have a CT abdominal pelvis concerning for circumferential wall thickening is also concerning for gallbladder wall thickening concerning for cholecystitis, Patient is status post laparoscopic cholecystectomy completed on 12/16/2023. On today's evaluation that is 12/18/2023,the patient denies any fever or any chills, patient is breathing comfortably on room air, the patient denies chest pain shortness of breath and no significant cough, patient abdominal pain has decreased in intensity patient has tolerated his diet no nausea no vomiting or any diarrhea. The patient white count is 11.17, creatinine 0.7 Objective - Vital Signs Vital signs: Vital Signs Temp 98.1 F 12/18/23 08:00 Pulse 60 12/18/23 08:00 Resp 16 12/18/23 08:00 BP 128/87 12/18/23 08:00 Pulse Ox 95 12/18/23 08:00 FiO2 Intake & Output 12/17/23 12/18/23 12/18/23 18:59 06:59 18:59 Intake Total 240 Balance 240 Intake: Oral 240 Other: Voiding Method Toilet # Voids 2 5 - Exam GENERAL DESCRIPTION: Young male lying in bed in no distress RESPIRATORY SYSTEM: Unlabored breathing , decreased breath sounds at bases HEART: S1 S2 regular rate and rhythm , ABDOMEN: Soft , mild right upper quadrant tenderness EXTREMITIES: No edema feet - Labs CBC & Chem 7: 12/18/23 06:49 12/18/23 06:49 Labs: Abnormal Lab Results - Last 24 Hours (Table) 12/17/23 12/17/23 Range/Units 05:42 05:42 WBC 14.59 H (4.50-10.00) X 10*3/uL Immature Gran # 0.08 H (0.00-0.04) X 10*3/uL Neutrophils # 11.45 H (1.80-7.70) X 10*3/uL Monocytes # 1.16 H (0.20-1.00) X 10*3/uL Carbon Dioxide 19.6 L (21.6-31.8) mmol/L Anion Gap 14.40 H (4.00-12.00) mmol/L BUN <3.5 L (9.0-27.0) mg/dL BUN/Creatinine Ratio <5.83 L (12.00-20.00) Ratio Assessment and Plan (1) Cholecystitis Current Visit: Yes Status: Acute Code(s): K81.9 - CHOLECYSTITIS, UNSPECIFIED SNOMED Code(s): 32249917 (2) Colitis Current Visit: Yes Status: Acute Code(s): K52.9 - NONINFECTIVE GASTROENTERITIS AND COLITIS, UNSPECIFIED SNOMED Code(s): 64082869 Plan: 1patient presented to hospital with intractable epigastric right upper quadrant pain this patient who did have right upper quadrant tenderness did have elevated white count normal ultrasound suspicious for cholecystitis HIDA scan has been ordered General surgery is on the case there was a concern for possible colitis involving the transverse colon which may be contribute some of his symptoms of epigastric pain but denies having significant diarrhea 2stool studies has been ordered but not collected 3patient is status post cholecystectomy patient did have elevated white count for surgery more likely reactive as the patient white count has improved today down to 11.1, we will continue the patient on Zosyn While inpatient and short course of oral Augmentin on discharge Dictation was produced using [employer] dictation software. please excuse any gram matical, word or spelling errors. Time with Patient: Less than 30
[2023-12-18 15:03] VITALS: BMI 28.5
== END 2023-12-18 16:01 | disposition home or self-care (01) | DRG 418 ==
LOC: EC 15:31 → 4SSUR 20:36 → 6NMEDSUR 12-13 11:10
PROVIDERS: ADMIT Hospitalist; ATTEND Hospitalist
PROC: 8E0W4CZ Robotic Assisted Procedure of Trunk Region, Percutaneous Endoscopic Approach (ICD-10-PCS; 2023-12-16)
PROC: BF50200 Other Imaging of Bile Ducts using Fluorescing Agent, Indocyanine Green Dye, Intraoperative (ICD-10-PCS; 2023-12-16)
PROC: 0DB98ZX Excision of Duodenum, Via Natural or Artificial Opening Endoscopic, Diagnostic (ICD-10-PCS; 2023-12-16)
PROC: 0DB78ZX Excision of Stomach, Pylorus, Via Natural or Artificial Opening Endoscopic, Diagnostic (ICD-10-PCS; 2023-12-16)
PROC: 0FT44ZZ Resection of Gallbladder, Percutaneous Endoscopic Approach (ICD-10-PCS; principal; 2023-12-16 14:15)
DX: K81.2 Acute cholecystitis with chronic cholecystitis (principal); K22.10 Ulcer of esophagus without bleeding; K82.8 Other specified diseases of gallbladder; K21.00 Gastro-esophageal reflux disease with esophagitis, without bleeding; F17.200 Nicotine dependence, unspecified, uncomplicated; E86.0 Dehydration; K29.00 Acute gastritis without bleeding; K29.50 Unspecified chronic gastritis without bleeding; K76.0 Fatty (change of) liver, not elsewhere classified; Z71.51 Drug abuse counseling and surveillance of drug abuser
CPT/HCPCS: 36415; 43239; 71045; 74177; 76705; 78227; 80048; 80053; 80306; 80320; 81003; 83605; 83690; 83735; 84100; 84145; 84484; 85025; 85610; 85652; 85730; 86140; 88304; 88305; 88342; 93005; 94760; 96365; 96375; 96376; 99285

== ENCOUNTER 2024-01-06 07:22 | Emergency (ER) | payer OTHER ==
--- NOTE | 2024-01-06 07:41 | ED ---
General Adult HPI - General Chief complaint: Abdominal Pain Stated complaint: Abd Pain Time Seen by Provider: 01/06/24 07:28 Source: patient Mode of arrival: wheelchair Limitations: no limitations - History of Present Illness Initial comments: Dictation was produced using [employer] dictation software. please excuse any grammatical, word or spelling errors. Chief Complaint: 38-year-old male presents emergency department abdominal pain History of Present Illness: Patient is a 38-year-old male who presents emergency department with severe abdominal pain that started approximately 3 hours ago. Patient states the pain occurred suddenly. Does have nausea vomiting diarrhea. Patient allegedly has recent gallbladder removal last month. States that he is doing fine postoperatively until this morning. Patient has some chills and night sweats. Denies any fever. The ROS documented in this emergency department record has been reviewed and confirmed by me. Those systems with pertinent positive or negative responses have been documented in the HPI. All other systems are other negative and/or noncontributory. - Related Data Home Medications Medication Instructions Recorded Confirmed Omeprazole 40 mg PO DAILY 12/13/23 01/06/24 Ondansetron Odt [Zofran ODT] 4 mg PO TID PRN 12/13/23 01/06/24 Allergies Allergy/AdvReac Type Severity Reaction Status Date / Time No Known Allergies Allergy Verified 01/06/24 10:55 Review of Systems ROS Statement: Those systems with pertinent positive or pertinent negative responses have been documented in the HPI. ROS Other: All systems not noted in ROS Statement are negative. Past Medical History Past Medical History: No Reported History History of Any Multi-Drug Resistant Organisms: None Reported Past Surgical History: Cholecystectomy Past Anesthesia/Blood Transfusion Reactions: No Reported Reaction Past Psychological History: No Psychological Hx Reported Smoking Status: Current every day smoker Past Alcohol Use History: None Reported Past Drug Use History: None Reported General Exam - General Exam Comments Initial Comments: PHYSICAL EXAM: General Impression: Alert and oriented x3, acute distress secondary pain, diaphoretic HEENT: Normocephalic atraumatic, extra-ocular movements intact, pupils equal and reactive to light bilaterally, mucous membranes moist. Cardiovascular: Heart regular rate and rhythm Chest: Able to complete full sentences, no retractions, no tachypnea Abdomen: abdomen soft, exquisite tenderness to the abdomen with palpation, non- distended, no organomegaly Musculoskeletal: Pulses present and equal in all extremities, no peripheral edema Motor: no focal deficits noted Neurological: CN II-XII grossly intact, no focal motor or sensory deficits noted Skin: Intact with no visualized rashes Psych: Normal affect and mood Limitations: no limitations Course Vital Signs 01/06/24 01/06/24 07:25 09:44 Temperature 98.0 F Pulse Rate 84 67 Respiratory 20 18 Rate Blood Pressure 127/86 114/71 O2 Sat by Pulse 100 100 Oximetry EKG Findings - EKG Comments: EKG Findings:: My EKG interpretation: Ventricular rate 68, sinus rhythm,. 163, cures 90, QTc 439. No ME prolongation, no QTC prolongation, no ST or T-wave changes noted. Overall, this EKG is unremarkable Medical Decision Making - Medical Decision Making Was pt. sent in by a medical professional or institution (, PA, FILTER PRESS SUPERVISOR, urgent care, hospital, or fci...) When possible be specific @ -No Did you speak to anyone other than the patient for history (EMS, parent, family, police, friend...)? What history was obtained from this source @ -No Did you review nursing and triage notes (agree or disagree)? Why? @ -I reviewed and agree with nursing and triage notes Were old charts reviewed (outside hosp., previous admission, EMS record, old EKG, old radiological studies, urgent care reports/EKG's, fci records)? Report findings @ -No old charts were reviewed Differential Diagnosis (chest pain, altered mental status, abdominal pain women, abdominal pain men, vaginal bleeding, musculoskeletal, weakness, fever, dyspnea, syncope, headache, dizziness, GI bleed, back pain, seizure, CVA, palpatations, mental health)? @ -Differential Abdominal Pain Men: Appendicitis, cholecystitis, diverticulosis, ischemic bowel, pancreatitis, hepatitis, UTI, gastroenteritis, AAA, incarcerated hernia, bowel obstruction, constipation, inflammatory bowel, hepatitis, peptic ulcer disease, splenic infarction, perforated viscus, testicular torsion, this is not meant to be an all-inclusive list EKG interpreted by me (3pts min.). @ -See above X-rays interpreted by me (1pt min.). @ -None done CT interpreted by me (1pt min.). @ -CT scan of the abdomen pelvis shows no acute processes U/S interpreted by me (1pt. min.). @ -None done What testing was considered but not performed or refused? (CT, X-rays, U/S, labs)? Why? @ -None What meds were considered but not given or refused? Why? @ -None Did you discuss the management of the patient with other professionals (professionals i.e. , PA, FILTER PRESS SUPERVISOR, lab, RT, psych nurse, social insurance specialist, children's lunchroom supervisor, teacher, quarantine officer, dependency case manager)? Give summary @ -No Was smoking cessation discussed for >3mins.? @ -No Was critical care preformed (if so, how long)? @ -No Were there social determinants of health that impacted care today? How? (Homelessness, low income, unemployed, alcoholism, drug addiction, tra nsportation, low edu. Level, literacy, decrease access to med. care, snf, rehab)? @ -No Was there de-escalation of care discussed even if they declined (Discuss DNR or withdrawal of care, Hospice)? DNR status @ -No What co-morbidities impacted this encounter? (DM, HTN, Smoking, COPD, CAD, Cancer, CVA, ARF, Chemo, Hep., AIDS, mental health diagnosis, sleep apnea, morbid obesity)? @ -None Was patient admitted / discharged? Hospital course, mention meds given and route, prescriptions, significant lab abnormalities, going to OR and other pertinent info. @ -2-year-old male presents emergency department with severe abdominal pain. Patient is pain is episodic. Vital signs upon arrival are within acceptable limits. Laboratory evaluation obtained. Mild stress leukocytosis of 11.5. Coag panel is negative. Metabolic panel is within acceptable limits. Lactic acidosis of 2.5. Repeat lactic is 1.3 after IV fluids. Patient given analgesics with resolution of symptoms. Patient's CT is negative. This point is unclear what is causing patient's symptoms. Patient discharged advised foll ow-up with primary care doctor. Undiagnosed new problem with uncertain prognosis? @ -No Drug Therapy requiring intensive monitoring for toxicity (Heparin, Nitro, Insulin, Cardizem)? @ -No Were any procedures done? @ -No Diagnosis/symptom? Acute, or Chronic, or Acute on Chronic? Uncomplicated (w ithout systemic symptoms) or Complicated (systemic symptoms)? @ -Episodic abdominal pain Side effects of treatment? @ -No Exacerbation, Progression, or Severe Exacerbation? @ -No Poses a threat to life or bodily function? How? (Chest pain, [place], [place], pneumonia, PE, COPD, DKA, ARF, appy, cholecystitis, CVA, Diverticulitis, Homicidal, Suicidal, threat to staff... and all critical care pts) @ -No - Lab Data Result diagrams: 01/06/24 08:03 01/06/24 08:03 Lab Results 01/06/24 01/06/24 01/06/24 Range/Units 08:03 08:03 08:03 WBC 11.5 H (3.8-10.6) k/uL RBC 6.02 H (4.30-5.90) m/uL Hgb 18.6 H (13.0-17.5) gm/dL Hct 53.7 H (39.0-53.0) % MCV 89.1 (80.0-100.0) fL MCH 30.8 (25.0-35.0) pg MCHC 34.6 (31.0-37.0) g/dL RDW 12.0 (11.5-15.5) % Plt Count 328 (150-450) k/uL MPV 7.6 Neutrophils % 79 % Lymphocytes % 12 % Monocytes % 5 % Eosinophils % 2 % Basophils % 1 % Neutrophils # 9.6 H (1.3-7.7) k/uL Lymphocytes # 1.5 (1.0-4.8) k/uL Monocytes # 0.6 (0-1.0) k/uL Eosinophils # 0.2 (0-0.7) k/uL Basophils # 0.1 (0-0.2) k/uL PT 10.9 (10.0-12.5) sec INR 1.0 (<1.2) APTT 26.7 (22.0-30.0) sec Sodium 138 (137-145) mmol/L Potassium 4.2 (3.5-5.1) mmol/L Chloride 104 (98-107) mmol/L Carbon Dioxide 21 L (22-30) mmol/L Anion Gap 13 mmol/L BUN 9 (9-20) mg/dL Creatinine 0.44 L (0.66-1.25) mg/dL Est GFR (CKD-EPI)AfAm >90 (>60 ml/min/1.73 sqM) Est GFR (CKD-EPI)NonAf >90 (>60 ml/min/1.73 sqM) Glucose 203 H (74-99) mg/dL Lactic Ac Sepsis Rflx Plasma Lactic Acid Jasiel (0.7-2.0) mmol/L Calcium 10.5 H (8.4-10.2) mg/dL Total Bilirubin 1.5 H (0.2-1.3) mg/dL AST 28 (17-59) U/L ALT 45 (4-49) U/L Alkaline Phosphatase 71 (38-126) U/L Total Protein 8.3 H (6.3-8.2) g/dL Albumin 5.1 H (3.5-5.0) g/dL 01/06/24 01/06/24 01/06/24 Range/Units 08:03 08:54 10:54 WBC (3.8-10.6) k/uL RBC (4.30-5.90) m/uL Hgb (13.0-17.5) gm/dL Hct (39.0-53.0) % MCV (80.0-100.0) fL MCH (25.0-35.0) pg MCHC (31.0-37.0) g/dL RDW (11.5-15.5) % Plt Count (150-450) k/uL MPV Neutrophils % % Lymphocytes % % Monocytes % % Eosinophils % % Basophils % % Neutrophils # (1.3-7.7) k/uL Lymphocytes # (1.0-4.8) k/uL Monocytes # (0-1.0) k/uL Eosinophils # (0-0.7) k/uL Basophils # (0-0.2) k/uL PT (10.0-12.5) sec INR (<1.2) APTT (22.0-30.0) sec Sodium (137-145) mmol/L Potassium (3.5-5.1) mmol/L Chloride (98-107) mmol/L Carbon Dioxide (22-30) mmol/L Anion Gap mmol/L BUN (9-20) mg/dL Creatinine (0.66-1.25) mg/dL Est GFR (CKD-EPI)AfAm (>60 ml/min/1.73 sqM) Est GFR (CKD-EPI)NonAf (>60 ml/min/1.73 sqM) Glucose (74-99) mg/dL Lactic Ac Sepsis Rflx Y Plasma Lactic Acid Jasiel 2.5 H* 1.3 (0.7-2.0) mmol/L Calcium (8.4-10.2) mg/dL Total Bilirubin (0.2-1.3) mg/dL AST (17-59) U/L ALT (4-49) U/L Alkaline Phosphatase (38-126) U/L Total Protein (6.3-8.2) g/dL Albumin (3.5-5.0) g/dL Disposition Clinical Impression: Abdominal pain Disposition: HOME SELF-CARE Condition: Fair Instructions (If sedation given, give patient instructions): Abdominal Pain (ED) Is patient prescribed a controlled substance at d/c from ED?: No Referrals: Jarret Lombardo DO [Primary Care Provider] - 1-2 days Time of Disposition: 11:47
[2024-01-06] MEDS: HYDROmorphone 1 MG/ML 1 ML SYRINGE IVP STA ×2 (08:04→10:03)
[2024-01-06] MEDS: SODIUM CHLORIDE 0.9% 1,000 ML IV STA (08:07)
[2024-01-06] MEDS: ONDANSETRON 4 MG/2 ML VIAL IVP STA (08:13)
[2024-01-06 08:36] LABS: Basophils # (A) 0.1 k/uL (0-0.2); Basophils % (A) 1 %; Eosinophils # (A) 0.2 k/uL (0-0.7); Eosinophils % (A) 2 %; HCT 53.7 % (39.0-53.0); HGB 18.6 gm/dL (13.0-17.5); Lymphocytes # (A) 1.5 k/uL (1.0-4.8); Lymphocytes % (A) 12 %; MCH 30.8 pg (25.0-35.0); MCHC 34.6 g/dL (31.0-37.0); MCV 89.1 fL (80.0-100.0); Mean Platelet Volume 7.6; Monocytes # (A) 0.6 k/uL (0-1.0); Monocytes % (A) 5 %; Neutrophils # (A) 9.6 k/uL (1.3-7.7); Neutrophils % (A) 79 %; Platelet Count 328 k/uL (150-450); RBC 6.02 m/uL (4.30-5.90); WBC 11.5 k/uL (3.8-10.6)
[2024-01-06 08:38] LABS: Partial Thromboplastin Time 26.7 sec (22.0-30.0); Prothrombin Time 10.9 sec (10.0-12.5)
[2024-01-06 08:40] LABS: ALT 45 U/L (4-49); AST 28 U/L (17-59); African American GFR (CKD) >90 (>60 ml/min/1.73 sqM); Albumin 5.1 g/dL (3.5-5.0); Alkaline Phosphatase 71 U/L (38-126); Anion Gap 13 mmol/L; Blood Urea Nitrogen 9 mg/dL (9-20); Calcium 10.5 mg/dL (8.4-10.2); Carbon Dioxide 21 mmol/L (22-30); Chloride 104 mmol/L (98-107); Glucose 203 mg/dL (74-99); Non-African American GFR(CKD) >90 (>60 ml/min/1.73 sqM); Potassium 4.2 mmol/L (3.5-5.1); Sodium 138 mmol/L (137-145); Total Bilirubin 1.5 mg/dL (0.2-1.3); Total Protein 8.3 g/dL (6.3-8.2)
--- NOTE | 2024-01-06 09:19 | CT ---
EXAMINATION TYPE: CT abdomen pelvis w con DATE OF EXAM: 01/06/2024 COMPARISON: 12/12/2023 HISTORY: Abdominal pain, S/P Cholecystectomy CT DLP: 1077.5 mGycm Automated exposure control for dose reduction was used. CONTRAST: CT scan of the abdomen pelvis is performed with IV Contrast, patient injected with 100 ml mL of Isovu e 300. FINDINGS- LUNG BASES- bibasilar atelectasis. LIVER/GB- reduced attenuation correlating ptosis. Trace amount of attenuation in the gallbladder fo ssa. Too small to characterize. PANCREAS- No gross abnormality is seen. SPLEEN- No gross abnormality is seen. ADRENALS- No gross abnormality is seen. KIDNEYS/BLADDER- no hydronephrosis nephrolithiasis or renal mass. BOWEL- no evidence of obstruction. Appendix normal. LYMPH NODES- No greater than 1cm abdominal or pelvic lymph nodes are appreciated. OSSEOUS STRUCTURES- No significant abnormality is seen. OTHER- aorta of normal caliber. Tiny fat-containing periumbilical hernia. Small fat-containing ingui nal hernia. IMPRESSION- 1. Postcholecystectomy with a trace amount of fluid in the gallbladder fossa to small to characterize . Likely postsurgical. 2. Normal appendix
[2024-01-06 09:52] VITALS: RESP 18
[2024-01-06 12:10] VITALS: BP 110/75; PULSE 80; TEMP 98.1
== END 2024-01-06 12:04 | disposition home or self-care (01) ==
LOC: EC 07:22
DX: R10.9 Unspecified abdominal pain (principal); F17.200 Nicotine dependence, unspecified, uncomplicated; Z90.49 Acquired absence of other specified parts of digestive tract
CPT/HCPCS: 36415; 93005; 80053; 83605; 85025; 85610; 85730; 74177; 99284; 96374; 96375; 96376; 96361; J2405; J1170; Q9967